=== PATIENT | male | born 1955 | race Caucasian/White ===

== ENCOUNTER → 2017-08-03 | Outpatient (CLI) | payer OTHER ==
--- NOTE | 2017-08-03 18:34 | US ---
EXAMINATION TYPE: US liver DATE OF EXAM: 08/03/2017 COMPARISON: NONE CLINICAL HISTORY: R74.8 abnormal levels of other serum enzymes; on medication for HTN, high cholester ol and DVT; HT 6'2, WT 250lbs EXAM MEASUREMENTS: Liver Length: 15.3 cm Gallbladder Wall: 0.2 cm CBD: 0.4 cm Right Kidney: 11.1 x 5.4 x 5.3 cm Pancreas: Tail obscured by overlying bowel gas Liver: hyperechoic to right renal cortex suggests fatty live Gallbladder: wnl Evidence for sonographic Dickerson's sign: No CBD: wnl Right Kidney: No hydronephrosis or masses seen IMPRESSION: Negative liver ultrasound exam. No dilated ducts. No focal liver defect.
== END ==
LOC: RADUSMAIN 17:47
PROVIDERS: ATTEND Family Medicine
DX: R74.8 Abnormal levels of other serum enzymes (principal)
CPT/HCPCS: 76705

== ENCOUNTER 2018-04-24 12:04 | Inpatient (IN) | payer OTHER ==
[2018-04-24] MEDS ORDERED: SODIUM CHLORIDE 0.9% 1,000 ML IV STA (12:40)
[2018-04-24] MEDS ORDERED: AMPICILLIN-SULBACTAM 3 GM in SODIUM CHLORIDE 0.9% 100 ML IVPB STA (12:45)
[2018-04-24] MEDS ORDERED: VANCOMYCIN IV PER PHARMACY 1 EACH MISC MISCELLANE PRN (12:46)
--- NOTE | 2018-04-24 12:49 | ED ---
Lower Extremity Injury HPI - General Chief Complaint: Extremity Injury, Lower Stated Complaint: POSS BLOODCLOT Time Seen by Provider: 04/24/18 12:21 Source: patient, RN notes reviewed Mode of arrival: wheelchair Limitations: no limitations - History of Present Illness Initial Comments: This is a 62-year-old male who presents to the emergency department with chief complaint of possible blood clot. Patient states that he has had a chronic wound on his right lower extremity for 7-8 years. He states that he was monitored by Dr. Mortensen and was recently cleared for treatment. Patient states that then, a couple weeks ago, the wound opened back up. He states that he followed up with his primary care provider, Dr. Peralta a couple of days ago. He was told that the wound did not look infected but Dr. Peralta recommended reestablishing care with Dr. Mortensen. Patient states when he woke up this morning his right calf was very tender, warm and red. He states he has been having difficulty ambulating because of the pain. Patient states he believes he may have a blood clot as he is prone to blood clots. He states he is currently taking Coumadin. He states that the wound looks as if it is healing since he has seen Dr. Peralta. He denies any fevers or chills, chest pain or shortness of breath, abdominal pain, nausea or vomiting. - Related Data Home Medications Medication Instructions Recorded Confirmed ALPRAZolam [Xanax] 0.5 mg PO TID PRN 01/22/14 12/27/17 Metoprolol Tartrate [Lopressor] 100 mg PO BID 01/22/14 12/27/17 HYDROcodone/APAP 10-325MG [[place] 1 tab PO Q4H PRN 03/01/17 12/27/17 10-325] Atorvastatin [Lipitor] 40 mg PO DAILY 09/08/17 12/27/17 Warfarin Sodium 5 mg PO MO 11/01/17 12/27/17 Warfarin [Coumadin] 2.5 mg PO DAILY 11/01/17 12/27/17 Allergies Allergy/AdvReac Type Severity Reaction Status Date / Time No Known Allergies Allergy Verified 04/24/18 12:18 Review of Systems ROS Statement: Those systems with pertinent positive or pertinent negative responses have been documented in the HPI. ROS Other: All systems not noted in ROS Statement are negative. Past Medical History Past Medical History: Atrial Fibrillation, Chest Pain / Angina, COPD, Deep Vein Thrombosis (DVT), GERD/Reflux, Hyperlipidemia, Hypertension, Myocardial Infarction (ME), Osteoarthritis (OA), Pneumonia, Pulmonary Embolus (PE), Vascular Disorder Additional Past Medical History / Comment(s): HAS A SKIN ULCER ON RIGHT ANKLE ( SINCE VENOUS ABLATION, HAS BEEN TO WOUND CENTER, IT STILL HAS NOT HEALED, APPT WITH [facility] ON SEP 16, 2017). SOB with activity, hepatitis C. Last Myocardial Infarction Date:: 04/2013 History of Any Multi-Drug Resistant Organisms: None Reported Past Surgical History: Heart Catheterization With Stent Additional Past Surgical History / Comment(s): throat and vocal cords scraped ( NEG). 08/03/14 [facility] Past Anesthesia/Blood Transfusion Reactions: No Reported Reaction Date of Last Stent Placement:: 05/16/2013 Past Psychological History: Anxiety Smoking Status: Former smoker Past Alcohol Use History: None Reported Past Drug Use History: None Reported - Past Family History Mother Family Medical History: Coronary Artery Disease (CAD) Sister(s) Family Medical History: Deep Vein Thrombosis (DVT) General Exam - General Exam Comments Initial Comments: General: Awake and alert, well-developed; in no apparent distress. HEENT: Head atraumatic, normocephalic. Pupils are equal, round and reactive to light. Extraocular movements intact. Oropharynx moist without erythema or exudate. Neck: Supple. Normal ROM. Cardiovascular: Regular rate and rhythm. No murmurs, rubs or gallops. Chest symmetrical. Respiratory: Lungs clear to auscultation bilaterally. No wheezes, rales or rhonchi. Normal respiratory effort with no use of accessory muscles. Musculoskeletal: Normal ROM bilateral upper and lower extremities. Right calf is tender on palpation. Skin: Approximately 10 cm x 3 cm open wound right medial distal lower extremity. Drainage is green in color. Just distal to this wound is a circular open wound measuring approximately 1 cm in diameter. This is also draining a green fluid. Erythema, warmth and tenderness from the wound extending almost to the knee. Neurological: Alert and oriented x3. CN II-XII grossly intact. Speech is fluent and answers are appropriate. No focal neuro deficits. Psychiatric: Normal mood and affect. No overt signs of depression or anxiety noted. Limitations: no limitations Course Vital Signs 04/24/18 04/24/18 04/24/18 12:17 13:52 14:00 Temperature 98.8 F 98.6 F Pulse Rate 97 94 Respiratory 18 18 16 Rate Blood Pressure 144/80 143/76 O2 Sat by Pulse 97 99 Oximetry Medical Decision Making - Medical Decision Making This is a 62-year-old male who presents to the emergency department with chief complaint of right calf pain. Patient reports that he has a chronic wound to his right lower extremity. He states that he is on Coumadin as he has had blood clots in the past. Patient states that he was managed by Dr. Mortensen for the chronic wound but was recently cleared from treatment. He states that his wound reopened up a couple of weeks ago. He did follow up with Dr. Peralta a couple of days ago who wanted patient to reestablish care with Dr. Mortensen. Patient reports to the emergency Department today with complaint of right calf pain, redness and warmth. Ultrasound venous Doppler of right lower extremity revealed evidence for a new superficial greater saphenous vein clot. Septic workup was performed. Patient does have a white count at 24.5 with a left shift at 22.7. INR is 2.7 which is in therapeutic range for Coumadin. Lactic acid is within normal limits. Patient was started on vancomycin and Unasyn on initial presentation to the emergency department as there was high suspicion for infection. Patient's vital signs are stable and he is in no acute distress. He will be admitted to Dr. Stack with a consult to Dr. Mortensen. Patient is in agreement for admission. He is in no acute distress. - Lab Data Result diagrams: 04/24/18 13:00 04/24/18 13:00 Lab Results 04/24/18 04/24/18 04/24/18 Range/Units 13:00 13:00 13:00 WBC 24.5 H (3.8-10.6) k/uL RBC 4.24 L (4.30-5.90) m/uL Hgb 12.5 L (13.0-17.5) gm/dL Hct 39.8 (39.0-53.0) % MCV 93.9 (80.0-100.0) fL MCH 29.5 (25.0-35.0) pg MCHC 31.4 (31.0-37.0) g/dL RDW 13.6 (11.5-15.5) % Plt Count 135 L (150-450) k/uL Neutrophils % 93 % Lymphocytes % 3 % Monocytes % 4 % Eosinophils % 0 % Basophils % 0 % Neutrophils # 22.7 H (1.3-7.7) k/uL Lymphocytes # 0.7 L (1.0-4.8) k/uL Monocytes # 1.0 (0-1.0) k/uL Eosinophils # 0.1 (0-0.7) k/uL Basophils # 0.0 (0-0.2) k/uL PT (9.0-12.0) sec INR (<1.2) APTT (22.0-30.0) sec Sodium 138 (137-145) mmol/L Potassium 3.9 (3.5-5.1) mmol/L Chloride 109 H (98-107) mmol/L Carbon Dioxide 21 L (22-30) mmol/L Anion Gap 8 mmol/L BUN 15 (9-20) mg/dL Creatinine 0.70 (0.66-1.25) mg/dL Est GFR (CKD-EPI)AfAm >90 (>60 ml/min/1.73 sqM) Est GFR (CKD-EPI)NonAf >90 (>60 ml/min/1.73 sqM) Glucose 127 H (74-99) mg/dL Plasma Lactic Acid Charlie 1.2 (0.7-2.0) mmol/L Calcium 8.8 (8.4-10.2) mg/dL Total Bilirubin 1.0 (0.2-1.3) mg/dL AST 46 (17-59) U/L ALT 70 (21-72) U/L Alkaline Phosphatase 95 (38-126) U/L Total Protein 7.7 (6.3-8.2) g/dL Albumin 3.6 (3.5-5.0) g/dL 04/24/18 Range/Units 13:00 WBC (3.8-10.6) k/uL RBC (4.30-5.90) m/uL Hgb (13.0-17.5) gm/dL Hct (39.0-53.0) % MCV (80.0-100.0) fL MCH (25.0-35.0) pg MCHC (31.0-37.0) g/dL RDW (11.5-15.5) % Plt Count (150-450) k/uL Neutrophils % % Lymphocytes % % Monocytes % % Eosinophils % % Basophils % % Neutrophils # (1.3-7.7) k/uL Lymphocytes # (1.0-4.8) k/uL Monocytes # (0-1.0) k/uL Eosinophils # (0-0.7) k/uL Basophils # (0-0.2) k/uL PT 24.2 H (9.0-12.0) sec INR 2.7 H (<1.2) APTT 40.1 H (22.0-30.0) sec Sodium (137-145) mmol/L Potassium (3.5-5.1) mmol/L Chloride (98-107) mmol/L Carbon Dioxide (22-30) mmol/L Anion Gap mmol/L BUN (9-20) mg/dL Creatinine (0.66-1.25) mg/dL Est GFR (CKD-EPI)AfAm (>60 ml/min/1.73 sqM) Est GFR (CKD-EPI)NonAf (>60 ml/min/1.73 sqM) Glucose (74-99) mg/dL Plasma Lactic Acid Charlie (0.7-2.0) mmol/L Calcium (8.4-10.2) mg/dL Total Bilirubin (0.2-1.3) mg/dL AST (17-59) U/L ALT (21-72) U/L Alkaline Phosphatase (38-126) U/L Total Protein (6.3-8.2) g/dL Albumin (3.5-5.0) g/dL - Radiology Data Radiology results: report reviewed Ultrasound venous Doppler right lower extremity impression: Positive for old thrombus in the popliteal vein and new thrombus in the superficial greater saphenous vein. Disposition Clinical Impression: Acute superficial venous thrombosis of right lower extremity, Wound infection Disposition: ADMITTED IP TO THIS [facility] Condition: Good Is patient prescribed a controlled substance at d/c from ED?: No Referrals: Pedro Peralta DO [Primary Care Provider] - 1-2 days Time of Disposition: 14:21
[2018-04-24] MEDS ORDERED: VANCOMYCIN 2,250 MG in SODIUM CHLORIDE 0.9% 500 ML IVPB STA (12:52)
[2018-04-24 13:36] LABS: ALT 70 U/L (21-72); AST 46 U/L (17-59); Albumin 3.6 g/dL (3.5-5.0); Alkaline Phosphatase 95 U/L (38-126); Anion Gap 8 mmol/L; Blood Urea Nitrogen 15 mg/dL (9-20); Calcium 8.8 mg/dL (8.4-10.2); Carbon Dioxide 21 mmol/L (22-30); Chloride 109 mmol/L (98-107); Glucose 127 mg/dL (74-99); Potassium 3.9 mmol/L (3.5-5.1); Sodium 138 mmol/L (137-145); Total Protein 7.7 g/dL (6.3-8.2)
[2018-04-24 13:43] LABS: Basophils % (A) 0 %; Eosinophils # (A) 0.1 k/uL (0-0.7); Eosinophils % (A) 0 %; HCT 39.8 % (39.0-53.0); HGB 12.5 gm/dL (13.0-17.5); Lymphocytes # (A) 0.7 k/uL (1.0-4.8); Lymphocytes % (A) 3 %; MCH 29.5 pg (25.0-35.0); MCHC 31.4 g/dL (31.0-37.0); MCV 93.9 fL (80.0-100.0); Mean Platelet Volume 6.9; Monocytes % (A) 4 %; Neutrophils # (A) 22.7 k/uL (1.3-7.7); Neutrophils % (A) 93 %; Platelet Count 135 k/uL (150-450); RBC 4.24 m/uL (4.30-5.90); RDW 13.6 % (11.5-15.5); WBC 24.5 k/uL (3.8-10.6)
[2018-04-24] MEDS ORDERED: MORPHINE SULFATE 4 MG/ML SYRINGE IVP STA (13:53)
--- NOTE | 2018-04-24 13:58 | US ---
EXAMINATION TYPE: US venous doppler duplex LE RT DATE OF EXAM: 04/24/2018 1:50 PM COMPARISON: NONE CLINICAL HISTORY: Pain, history of DVT right leg 6 years prior, non healing leg wound x 2 years. SIDE PERFORMED: Right TECHNIQUE: The lower extremity deep venous system is examined utilizing real time linear array sonog steve with graded compression, doppler sonography and color-flow sonography. VESSELS IMAGED: External Iliac Vein (EIV) Common Femoral Vein Deep Femoral Vein Greater Saphenous Vein * Femoral Vein Popliteal Vein Small Saphenous Vein * Proximal Calf Veins (* superficial vessels) Prominent lymph nodes in right groin. Extensive right leg swelling. Right Leg: At proximal popliteal vein is not completely compressible and shows echogenic focus within . This is non-occluding, there is flow around it. GSV shows thrombus, large non-compressible vein. No popliteal fossa lesion is seen. IMPRESSION: THIS EXAMINATION IS POSITIVE FOR OLD THROMBUS IN THE POPLITEAL VEIN AND NEW THROMBUS IN THE SUPERFICI AL GREATER SAPHENOUS VEIN.
[2018-04-24 14:00] LABS: INR 2.7 (<1.2); Partial Thromboplastin Time 40.1 sec (22.0-30.0); Prothrombin Time 24.2 sec (9.0-12.0)
[2018-04-24] MEDS ORDERED: ONDANSETRON 4 MG/2 ML VIAL IVP PRN (14:21)
[2018-04-24] MEDS ORDERED: HYDROcodone/APAP 5-325MG 1 EACH TAB PO PRN (14:21)
[2018-04-24] MEDS ORDERED: NALOXONE 0.4 MG/ML 1 ML VIAL IV PRN (14:21)
[2018-04-24] MEDS ORDERED: MORPHINE SULFATE 4 MG/ML SYRINGE IV PRN (14:21)
[2018-04-24] MEDS: SODIUM CHLORIDE 0.9% 1,000 ML IV SCH ×2 (15:35→23:06)
[2018-04-24] MEDS ORDERED: MAGNESIUM HYDROXIDE 2,400 MG/10 ML CUP PO PRN (16:58)
[2018-04-24] MEDS ORDERED: LACTULOSE 20 GM/30 ML CUP PO PRN (16:58)
[2018-04-24] MEDS ORDERED: CALCIUM CARBONATE 500 MG CHEWABLE PO PRN (16:58)
[2018-04-24] MEDS ORDERED: MELATONIN 3 MG TABLET PO PRN (16:58)
[2018-04-24] MEDS ORDERED: LORazepam 0.5 MG TAB PO PRN (16:58)
[2018-04-24] MEDS: HYDROcodone/APAP 10-325MG 1 EACH TAB PO PRN ×2 (17:18→23:05)
[2018-04-24] MEDS: WARFARIN 2.5 MG TAB PO SCH (17:37)
[2018-04-24] MEDS: AMPICILLIN-SULBACTAM 3 GM in SODIUM CHLORIDE 0.9% 100 ML IVPB SCH ×2 (17:37→23:05)
[2018-04-24] MEDS: ATORVASTATIN 40 MG TAB PO SCH (20:06)
[2018-04-24] MEDS: METOPROLOL TARTRATE 50 MG TAB PO SCH (20:06)
[2018-04-24] MEDS ORDERED: MORPHINE ORAL SOLN 10 MG/5 ML CUP PO PRN (21:29)
[2018-04-24] MEDS: VANCOMYCIN 2,000 MG in SODIUM CHLORIDE 0.9% 500 ML IVPB SCH (23:05)
--- NOTE | 2018-04-24 23:40 | HP ---
HISTORY AND PHYSICAL DATE OF ADMISSION: 04/24/2018. PRESENTING COMPLAINT: Infected right foot. HISTORY OF PRESENTING COMPLAINT: This is a very pleasant 62-year-old patient of Dr. Peralta whose chronic stable medical conditions include atrial fibrillation, GERD, hyperlipidemia, hypertension, coronary artery disease, osteoarthritis. The patient has a wound on the right foot for 9 years, has followed with Dr. Mortensen off and on in the wound center. The patient also had some valvular surgery done to the lower extremity down at [facility] about 2 years ago. About 2 weeks ago patient's wound is again getting worse, 2 days ago right leg became more painful, swollen, red. No fever or chills. Not infected appearing. The patient decided to present to the ER. He was started on IV Unasyn. Admitted for the same. Dressing was put on the same. REVIEW OF SYSTEMS: CONSTITUTIONAL: Tired. HEENT: None. RESPIRATORY: None. CARDIOVASCULAR: None. GASTROINTESTINAL: Heartburn. GENITOURINARY: None. MUSCULOSKELETAL: Aches and pains in the joints. DERMATOLOGIC: As above. LYMPHATICS: None. PSYCHIATRY: None. NEUROLOGIC: None. PAST MEDICAL HISTORY: Atrial fibrillation, DVT, GERD, hyperlipidemia, hypertension, myocardial infarction, osteoarthritis, PE, peripheral artery disease, skin ulcer of the right ankles, hepatitis C. PAST SURGICAL HISTORY: Cardiac cath with stent, throat and vocal cords were scraped, venous circulation and intervention at [facility]. PSYCH HISTORY: Anxiety. SOCIAL HISTORY: The patient smoked a pack a day for 25 years, stopped 9 years ago. . 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 FAMILY HISTORY: Coronary artery disease. HOME MEDICATIONS: 1. Coumadin 2.5 on Wednesday, Wednesday, Wednesday, , Wednesday, Wednesday, 5 mg on Wednesday. 2. Lopressor 100 mg b.i.d. 3. [place] 10 mg 1 tab every 4 hours p.r.n. 4. Lipitor 40 mg at bedtime. 5. Aspirin 81 mg p.o. daily. ALLERGIES: APIXABAN. EXAMINATION: VITAL SIGNS: Temperature 100.4, pulse 110, respirations 16, blood pressure 159/59, pulse ox 98% on room air. GENERAL APPEARANCE: Average built, BMI 35.2, sitting up, anxious-appearing. EYES: Pupils equal. Conjunctivae normal. HEENT: External nose and ears normal. Oral cavity normal. NECK: JVD not raised. Mass not palpable. Respiratory effort normal. LUNGS: Slightly decreased breath sounds. CARDIOVASCULAR: 1st and 2nd sounds normal. No edema. ABDOMEN: Soft, nontender. Liver and spleen not palpable. LYMPHATIC: No lymph nodes palpable in neck or axillae. PSYCHIATRY: Alert and oriented x3. Mood and affect normal. EXTREMITIES: Right foot in a dressing. There is redness and tenderness extending to the mid calf level. INVESTIGATIONS: White count 24.5, hemoglobin 12.5, increased neutrophils. INR 2.7. Potassium 3.9. BUN and creatinine normal. Venous Doppler of the right lower extremity shows full thrombus in the peripheral vein and new thrombus in the superficial greater saphenous vein. ASSESSMENT: 1. Acute on chronic right foot wound from underlying peripheral artery disease, secondary infected causing sepsis present on admission. 2. History of atrial fibrillation. 3. Chronic deep venous thrombosis in the right lower extremity. 4. Questionable deep venous thrombosis in the superficial femoral vein. 5. Gastroesophageal reflux disease. 6. Hyperlipidemia. 7. Essential hypertension. 8. Primary osteoarthritis. 9. Peripheral artery disease with prior intervention. 10.Coronary artery disease, prior history of stent. PLAN: Home medications are resumed. The patient is also put on vancomycin and Unasyn. Consultation to Infectious Disease and Vascular has been done. Care was discussed with the patient. Questions were answered. INR will be closely followed. MMODL / IJN: [id number] /
[2018-04-25] MEDS: HYDROcodone/APAP 10-325MG 1 EACH TAB PO PRN ×5 (04:21→22:45)
[2018-04-25] MEDS: AMPICILLIN-SULBACTAM 3 GM in SODIUM CHLORIDE 0.9% 100 ML IVPB SCH ×3 (06:20→18:32)
[2018-04-25] MEDS: ASPIRIN 81 MG PO SCH (09:09)
[2018-04-25] MEDS: METOPROLOL TARTRATE 50 MG TAB PO SCH ×2 (09:09→21:47)
[2018-04-25] MEDS: VANCOMYCIN 2,000 MG in SODIUM CHLORIDE 0.9% 500 ML IVPB SCH ×2 (09:09→16:52)
[2018-04-25] MEDS ORDERED: DIPH,PERTUS(ACELL)TETVAC-LF 0.5 ML VIAL IM ONE (10:21)
--- NOTE | 2018-04-25 14:29 | P.CONS ---
History of Present Illness - Reason for Consult Consult date: 04/25/18 Chronic wound infection - History of Present Illness This is a 62-year-old male well-known to ID service as he has been seen in the past most recently under the care of Dr. Mortensen in the wound healing Center and he was discharged from care on December 2017. Patient also has history of endovenous laser ablation done in [place] by Dr. Lopes in December. He has chronic wounds to the right lower extremity for 70 years. He states couple weeks ago the wound opened up and when he got up on Wednesday he noticed that it was very tender to his calf, warm and red. He did see Dr. Peralta last Wednesday and everything was fine at that time. He came into [facility] emergency center was found to have a fever of 100.9 , leukocytosis of 24.9. INR is 2.7. He is on chronic Coumadin for multiple DVTs. Ultrasound of the right leg showed old thrombus in the popliteal vein and superficial greater saphenous vein. Patient was started on Unasyn and vancomycin and admitted to the Medr floor. Patient does not recall his last tetanus up-to-date. Review of Systems All systems: negative Constitutional: Denies chills, Denies fever, Denies poor appetite, Denies weight loss Eyes: denies blurred vision, denies pain Ears, nose, mouth and throat: Denies dysphagia, Denies headache, Denies sore throat Cardiovascular: Reports leg edema, Denies chest pain, Denies decreased exercise tolerance, Denies dyspnea on exertion, Denies lightheadedness, Denies shortness of breath, Denies syncope Respiratory: Denies cough, Denies cough with sputum, Denies dyspnea, Denies excessive sputum, Denies hemoptysis, Denies home oxygen, Denies wheezing Gastrointestinal: Denies abdominal pain, Denies diarrhea, Denies nausea, Denies vomiting Genitourinary: Denies dysuria Musculoskeletal: Denies myalgias Integumentary: Reports foot/leg ulcers, Reports wounds, Denies pruritus, Denies rash Neurological: Denies numbness, Denies weakness Psychiatric: Denies anxiety, Denies depression Endocrine: Denies fatigue, Denies weight change Past Medical History Past Medical History: Atrial Fibrillation, Chest Pain / Angina, Deep Vein Thrombosis (DVT), GERD/Reflux, Hyperlipidemia, Hypertension, Myocardial Infarction (HI), Osteoarthritis (OA), Pneumonia, Pulmonary Embolus (PE), Vascular Disorder Additional Past Medical History / Comment(s): HAS A SKIN ULCER ON RIGHT ANKLE ( SINCE VENOUS ABLATION, HAS BEEN TO WOUND CENTER, IT STILL HAS NOT HEALED, APPT WITH [facility] ON SEP [facility], 2017). SOB with activity, hepatitis C. Last Myocardial Infarction Date:: 04/2013 History of Any Multi-Drug Resistant Organisms: None Reported Past Surgical History: Heart Catheterization With Stent Additional Past Surgical History / Comment(s): throat and vocal cords scraped ( NEG). 08/03/14 Venous ablation done at [facility]. Past Anesthesia/Blood Transfusion Reactions: No Reported Reaction Date of Last Stent Placement:: 05/16/2013 Past Psychological History: Anxiety Smoking Status: Former smoker Past Alcohol Use History: None Reported Additional Past Alcohol Use History / Comment(s): QUIT: 9 YRS(2006). SMOKED: ABOUT 25 YRS. PPD: 1. Patient denies any marijuana or street drug use. He lives at home with his , dogs and cat and Bird. 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 Past Drug Use History: None Reported - Past Family History Mother Family Medical History: Coronary Artery Disease (CAD) Sister(s) Family Medical History: Deep Vein Thrombosis (DVT) Medications and Allergies Home Medications Medication Instructions Recorded Confirmed Type Metoprolol Tartrate [Lopressor] 100 mg PO BID 01/22/14 04/24/18 History HYDROcodone/APAP 10-325MG [[place] 1 tab PO Q4H PRN 03/01/17 04/24/18 History 10-325] Atorvastatin [Lipitor] 40 mg PO HS 09/08/17 04/24/18 History Warfarin Sodium 5 mg PO TU 11/01/17 04/24/18 History Aspirin [Children's Aspirin] 81 mg PO DAILY 04/24/18 04/24/18 History Warfarin [Coumadin] 2.5 mg PO SUMOWETHFRSA 04/24/18 04/24/18 History Vancomycin 2,000 mg IVPB Q24HR #80 bag 04/28/18 Rx Allergies Allergy/AdvReac Type Severity Reaction Status Date / Time apixaban [From Eliquis] AdvReac Confusion Verified 04/24/18 18:43 Physical Exam Vitals: Vital Signs Temp Pulse Pulse Resp BP BP BP 04/25/18 07:00 98.2 F 79 18 101/47 04/24/18 23:00 100.9 F H 97 18 137/71 04/24/18 19:43 98.9 F 100 20 128/66 04/24/18 16:57 18 04/24/18 15:28 98.2 F 99 18 159/59 04/24/18 15:00 100.4 F H 110 H 16 188/97 04/24/18 14:00 16 04/24/18 13:52 98.6 F 94 18 143/76 04/24/18 12:17 98.8 F 97 18 144/80 Pulse Ox 04/25/18 07:00 99 04/24/18 23:00 98 04/24/18 19:43 98 04/24/18 16:57 04/24/18 15:28 98 04/24/18 15:00 04/24/18 14:00 04/24/18 13:52 99 04/24/18 12:17 97 Intake and Output 04/24/18 04/25/18 04/25/18 22:59 06:59 14:59 Intake Total 1050 525 Balance 1050 525 Intake: Amount of Fluid Infused ( 600 ml) Oral 450 525 Other: # Voids 1 1 Gen: This is a 62-year-old male. He is in bed and appears to be comfortable and in no acute distress. HEENT: Head is atraumatic, normocephalic. Pupils equal, round. Sclerae is anicteric. Dentition is in poor oral. Mucous membranes of the mouth are moist. NECK: Supple. No JVD. No lymphadenopathy. No thyromegaly. LUNGS: Clear to auscultation. No wheezes or rhonchi. No intercostal retractions. HEART: Regular rate and rhythm. No murmur. ABDOMEN: Soft. Bowel sounds are present. No masses. No tenderness. EXTREMITIES: Large ulceration to the right lower leg with tendon exposure and small ulcer to the right medial malleolus small superficial last ulcerations to the right lateral malleolus. Dorsalis pedis is palpable bilaterally. NEUROLOGICAL: Patient is awake, alert and oriented x3. Cranial nerves 2 through 12 are grossly intact. Results Results: Laboratory Tests Range/Units 04/24/18 04/24/18 04/24/18 13:00 13:00 13:00 WBC (3.8-10.6) k/uL 24.5 H RBC (4.30-5.90) m/uL 4.24 L Hgb (13.0-17.5) gm/dL 12.5 L Hct (39.0-53.0) % 39.8 MCV (80.0-100.0) fL 93.9 MCH (25.0-35.0) pg 29.5 MCHC (31.0-37.0) g/dL 31.4 RDW (11.5-15.5) % 13.6 Plt Count (150-450) k/uL 135 L Neutrophils % % 93 Lymphocytes % % 3 Monocytes % % 4 Eosinophils % % 0 Basophils % % 0 Neutrophils # (1.3-7.7) k/uL 22.7 H Lymphocytes # (1.0-4.8) k/uL 0.7 L Monocytes # (0-1.0) k/uL 1.0 Eosinophils # (0-0.7) k/uL 0.1 Basophils # (0-0.2) k/uL 0.0 PT (9.0-12.0) sec INR (<1.2) APTT (22.0-30.0) sec Sodium (137-145) mmol/L 138 Potassium (3.5-5.1) mmol/L 3.9 Chloride (98-107) mmol/L 109 H Carbon Dioxide (22-30) mmol/L 21 L Anion Gap mmol/L 8 BUN (9-20) mg/dL 15 Creatinine (0.66-1.25) mg/dL 0.70 Est GFR (CKD-EPI)AfAm (>60 ml/min/1.73 sqM) >90 Est GFR (CKD-EPI)NonAf (>60 ml/min/1.73 sqM) >90 Glucose (74-99) mg/dL 127 H Plasma Lactic Acid Charlie (0.7-2.0) mmol/L 1.2 Calcium (8.4-10.2) mg/dL 8.8 Total Bilirubin (0.2-1.3) mg/dL 1.0 AST (17-59) U/L 46 ALT (21-72) U/L 70 Alkaline Phosphatase (38-126) U/L 95 Total Protein (6.3-8.2) g/dL 7.7 Albumin (3.5-5.0) g/dL 3.6 Range/Units 04/24/18 13:00 WBC (3.8-10.6) k/uL RBC (4.30-5.90) m/uL Hgb (13.0-17.5) gm/dL Hct (39.0-53.0) % MCV (80.0-100.0) fL MCH (25.0-35.0) pg MCHC (31.0-37.0) g/dL RDW (11.5-15.5) % Plt Count (150-450) k/uL Neutrophils % % Lymphocytes % % Monocytes % % Eosinophils % % Basophils % % Neutrophils # (1.3-7.7) k/uL Lymphocytes # (1.0-4.8) k/uL Monocytes # (0-1.0) k/uL Eosinophils # (0-0.7) k/uL Basophils # (0-0.2) k/uL PT (9.0-12.0) sec 24.2 H INR (<1.2) 2.7 H APTT (22.0-30.0) sec 40.1 H Sodium (137-145) mmol/L Potassium (3.5-5.1) mmol/L Chloride (98-107) mmol/L Carbon Dioxide (22-30) mmol/L Anion Gap mmol/L BUN (9-20) mg/dL Creatinine (0.66-1.25) mg/dL Est GFR (CKD-EPI)AfAm (>60 ml/min/1.73 sqM) Est GFR (CKD-EPI)NonAf (>60 ml/min/1.73 sqM) Glucose (74-99) mg/dL Plasma Lactic Acid Charlie (0.7-2.0) mmol/L Calcium (8.4-10.2) mg/dL Total Bilirubin (0.2-1.3) mg/dL AST (17-59) U/L ALT (21-72) U/L Alkaline Phosphatase (38-126) U/L Total Protein (6.3-8.2) g/dL Albumin (3.5-5.0) g/dL CBC & Chem 7: 04/28/18 07:39 04/29/18 07:20 Labs: Abnormal Lab Results - Last 24 Hours (Table) 04/24/18 04/24/18 04/24/18 Range/Units 13:00 13:00 13:00 WBC 24.5 H (3.8-10.6) k/uL RBC 4.24 L (4.30-5.90) m/uL Hgb 12.5 L (13.0-17.5) gm/dL Plt Count 135 L (150-450) k/uL Neutrophils # 22.7 H (1.3-7.7) k/uL Lymphocytes # 0.7 L (1.0-4.8) k/uL PT 24.2 H (9.0-12.0) sec INR 2.7 H (<1.2) APTT 40.1 H (22.0-30.0) sec Chloride 109 H (98-107) mmol/L Carbon Dioxide 21 L (22-30) mmol/L Glucose 127 H (74-99) mg/dL Assessment and Plan Plan: This is a 62-year-old male known to ID service as he has had treatment for right lower extremity wound and the wound healing Center under the care of Dr. Mortensen. Patient now presents with significant edema, redness and ulceration to the right lower extremity. He is currently on Unasyn and vancomycin which will be continued. Patient did present with signs of sepsis secondary to wounds. Blood culture is in progress. We have added in all wound culture, multivitamin, tetanus and a bone scan has been ordered. Continue supportive care. Further recommendations as patient progresses. The above dictated assessment and findings were discussed with Dr. Armstrong. The impression and plan of care have been directed as dictated. Zara Herrera nurse practitioner acting as scribe for Dr. Armstrong.
[2018-04-25] MEDS: SODIUM CHLORIDE 0.9% 1,000 ML IV SCH (14:47)
[2018-04-25 15:37] VITALS: BMI 35.4
--- NOTE | 2018-04-25 15:58 | NM ---
EXAMINATION TYPE: NM bone 3 phase DATE OF EXAM: 04/25/2018 COMPARISON: NONE HISTORY: Right foot and lower tibia fibula infection Triple phase bone scintigraphy was performed following the injection of 24.6 mCi Tc 99m MDP. Immedia te images and 3.25 hours post injection images acquired. FINDINGS: Increased blood flow and blood pool activity noted to the right lower extremity as compared to left i n the medial extent at the level of the ankle is some mild uptake noted in the midfoot noted on blood pool and delayed imaging. IMPRESSION: Findings felt more likely represent cellulitis and osteomyelitis. Follow-up as indicated. Probable un derlying degenerative change within the foot.
[2018-04-25] MEDS: WARFARIN 2.5 MG TAB PO SCH (16:53)
--- NOTE | 2018-04-25 17:35 | PN ---
PROGRESS NOTE DATE OF SERVICE: 04/25/2018. PRESENTING COMPLAINT: Infected right foot. INTERVAL HISTORY: This is a patient with chronic wound on the right leg who presented with acute exacerbation. Patient is on antibiotics. No fever. No chills. Did tolerate some diet. Sitting up in bed. REVIEW OF SYSTEMS: Done for constitutional, cardiovascular, GI, pulmonary; relevant findings as above. CURRENT MEDICATIONS: Reviewed. They include IV vancomycin and IV Unasyn. PHYSICAL EXAMINATION: Temperature 98.2, pulse 79, respiration 18, blood pressure 101/47, pulse ox 99% on room air. GENERAL APPEARANCE: Sitting up. Tired-appearing. EYES: Pupils equal. Conjunctivae normal. HEENT: External appearance of nose and ears normal. Oral cavity normal. NECK: JVD not raised. Mass not palpable. RESPIRATORY: Effort normal. LUNGS: Slightly decreased breath sounds. CARDIOVASCULAR: First and second sounds normal. No edema. ABDOMEN: Soft, non-tender. Liver and spleen not palpable. PSYCHIATRY: Alert and oriented x3. Mood and affect normal. Right foot in a dressing with redness and tenderness about the same. INVESTIGATIONS: No blood work from today. ASSESSMENT: 1. Acute on chronic right foot wound from underlying peripheral arterial disease with secondary infection causing sepsis, present on admission. 2. History of atrial fibrillation. 3. Chronic deep venous thrombosis in the right lower extremity. 4. Questionable deep venous thrombosis in superficial femoral veins. 5. Gastroesophageal reflux disease. 6. Hyperlipidemia. 7. Essential hypertension. 8. Primary osteoarthritis. 9. Peripheral arterial disease with prior . 10.Coronary artery disease with prior history of stent. PLAN: Continue current medication and treatment plan. Care was discussed with the patient. Patient did have a bone scan done earlier today. There was a question about osteomyelitis. Antibiotics to continue. Dr. Armstrong is on the case. MMODL / IJN: [id number] /
--- NOTE | 2018-04-25 19:46 | P.CON ---
Consult Note - . Consult date: 04/25/18 Assessment/Plan:: This is a 62-year-old male well-known to ID service as he has been seen in the past most recently under the care of Dr. Mortensen in the wound healing Center and he was discharged from care on December 2017. Patient also has history of endovenous laser ablation done in [place] by Dr. Lopes in December. He has chronic wounds to the right lower extremity for 70 years. He states couple weeks ago the wound opened up and when he got up on Wednesday he noticed that it was very tender to his calf, warm and red. He did see Dr. Peralta last Wednesday and everything was fine at that time. He came into [facility] emergency center was found to have a fever of 100.9 , leukocytosis of 24.9. INR is 2.7. He is on chronic Coumadin for multiple DVTs. Ultrasound of the right leg showed old thrombus in the popliteal vein and superficial greater saphenous vein. Patient was started on Unasyn and vancomycin and admitted to the [facility] floor. Patient does not recall his last tetanus up-to-date. Please see the consult note as dictated by nurse practitioner Marisa Zara Herrera.. If the symptoms pleasant gentleman is quite comfortable. He does answer to phone calls while I am present from his work. He relates they're pressuring him to come back as soon as possible due to the upcoming audit. The patient has had these to begin worsening of the chronic ulceration to the left lower extremity and with the development of significant erythema he presented to Hospital where he was found evidence of sepsis with leukocytosis from the cellulitis to the limb. Imaging has revealed an old clot there are no new acute clots at this time. Does have some significant edema to the limb. Vascular evaluation is being requested to determine his current vascular status and need for any further intervention. As noted he has had vascular interventions done at the [facility] last year. While cultures are pending he is on vancomycin and Unasyn based on prior culture results. Continue local care at this point in time with elevation and will utilize absorptive silver for now. Update his tetanus vaccine. Make sure he has a multivitamin. Leukocytosis appears to be directly related to the significant cellulitis and was monitored throughout his stay. He is chronically anticoagulated and INR appears to be therapeutic at 2.7. Patient understands importance of elevation and wound care. Requesting bone scan to evaluate the possibility of underlying deep infection, cultures are in process. Given the longevity there is concern there could be underlying osteomyelitis and may require outpatient intravenous antibiotic therapy. This can be arranged before his discharge. It may be slough some difficulty given his work schedule, but limb salvage is our primary goal. I agree with evaluation, assessment and plan as dictated by nurse practitioner Mrs. Zara Herrera.
[2018-04-25] MEDS: ATORVASTATIN 40 MG TAB PO SCH (21:47)
[2018-04-26] MEDS: AMPICILLIN-SULBACTAM 3 GM in SODIUM CHLORIDE 0.9% 100 ML IVPB SCH ×4 (00:39→17:59)
[2018-04-26] MEDS: VANCOMYCIN 2,000 MG in SODIUM CHLORIDE 0.9% 500 ML IVPB SCH ×2 (00:39→07:44)
[2018-04-26] MEDS: HYDROcodone/APAP 10-325MG 1 EACH TAB PO PRN ×5 (03:09→22:10)
[2018-04-26] MEDS: SODIUM CHLORIDE 0.9% 1,000 ML IV SCH ×3 (03:17→17:59)
[2018-04-26] MEDS ORDERED: VANCOMYCIN TROUGH DUE 1 EACH MISC MISCELLANE ONE (07:00)
[2018-04-26 07:46] LABS: Basophils % (A) 0 %; Eosinophils # (A) 0.3 k/uL (0-0.7); Eosinophils % (A) 2 %; HCT 34.6 % (39.0-53.0); HGB 10.8 gm/dL (13.0-17.5); Lymphocytes % (A) 8 %; MCH 30.1 pg (25.0-35.0); MCHC 31.3 g/dL (31.0-37.0); Mean Platelet Volume 7.2; Monocytes # (A) 0.5 k/uL (0-1.0); Monocytes % (A) 4 %; Neutrophils # (A) 9.6 k/uL (1.3-7.7); Neutrophils % (A) 83 %; Platelet Count 124 k/uL (150-450); RDW 13.3 % (11.5-15.5); WBC 11.5 k/uL (3.8-10.6)
[2018-04-26 08:19] LABS: Anion Gap 9 mmol/L; Blood Urea Nitrogen 12 mg/dL (9-20); Calcium 8.1 mg/dL (8.4-10.2); Carbon Dioxide 22 mmol/L (22-30); Chloride 109 mmol/L (98-107); Glucose 106 mg/dL (74-99); Sodium 140 mmol/L (137-145)
[2018-04-26] MEDS: METOPROLOL TARTRATE 50 MG TAB PO SCH ×2 (09:04→22:11)
[2018-04-26] MEDS: ASPIRIN 81 MG PO SCH (09:04)
[2018-04-26 11:01] LABS: INR 1.9 (<1.2)
[2018-04-26] MEDS ORDERED: WARFARIN 5 MG TAB PO SCH (18:00)
[2018-04-26] MEDS: ATORVASTATIN 40 MG TAB PO SCH (22:11)
--- NOTE | 2018-04-26 23:33 | P.PN ---
Subjective Progress Note Date: 04/26/18 This is a 62-year-old male well-known to ID service as he has been seen in the past most recently under the care of Dr. Mortensen in the wound healing Center and he was discharged from care on December 2017. Patient also has history of endovenous laser ablation done in [place] by Dr. Lopes in December. He has chronic wounds to the right lower extremity for 70 years. He states couple weeks ago the wound opened up and when he got up on Wednesday he noticed that it was very tender to his calf, warm and red. He did see Dr. Peralta last Wednesday and everything was fine at that time. He came into [facility] emergency center was found to have a fever of 100.9 , leukocytosis of 24.9. INR is 2.7. He is on chronic Coumadin for multiple DVTs. Ultrasound of the right leg showed old thrombus in the popliteal vein and superficial greater saphenous vein. Patient was started on Unasyn and vancomycin and [facility]. Patient does not recall his last tetanus up-to-date. 04/26/2018 reveals some improvement to the leg with some improved discomfort. Still very swollen and erythematous. Objective - Vital Signs Vital signs: Vital Signs Temp 99.5 F 04/26/18 15:00 Pulse 101 H 04/26/18 15:00 Resp 18 04/26/18 15:00 BP 124/85 04/26/18 15:00 Pulse Ox 96 04/26/18 15:00 Intake & Output 04/26/18 04/26/18 04/27/18 06:59 18:59 06:59 Intake Total 500 600 Output Total 2 Balance 498 600 Intake: Intake, IV Titration 600 Amount Ampicillin-Sulbactam 3 gm 100 In Sodium Chloride 0.9% 100 ml @ 100 mls/hr IVPB Q6HR HARDEEP Rx#:[id number] Sodium Chloride 0.9% 1, 500 000 ml @ 100 mls/hr IV . Q10H HARDEEP Rx#:[id number] Oral 500 Output: Urine 2 Other: Voiding Method Toilet # Voids 1 3 - Exam Gen: This is a 62-year-old male. He is in bed and appears to be comfortable and in no acute distress. HEENT: Head is atraumatic, normocephalic. Pupils equal, round. Sclerae is anicteric. Dentition is in poor oral. Mucous membranes of the mouth are moist. NECK: Supple. No JVD. No lymphadenopathy. No thyromegaly. LUNGS: Clear to auscultation. No wheezes or rhonchi. No intercostal retractions. HEART: Regular rate and rhythm. No murmur. ABDOMEN: Soft. Bowel sounds are present. No masses. No tenderness. EXTREMITIES: Large ulceration to the right lower leg with tendon exposure and small ulcer to the right medial malleolus small superficial last ulcerations to the right lateral malleolus. Dorsalis pedis is palpable bilaterally. NEUROLOGICAL: Patient is awake, alert and oriented x3. Cranial nerves 2 through 12 are grossly intact. - Labs CBC & Chem 7: 04/26/18 07:08 04/26/18 07:08 Labs: Abnormal Lab Results - Last 24 Hours (Table) 04/26/18 04/26/18 04/26/18 Range/Units 07:08 07:08 07:08 WBC 11.5 H (3.8-10.6) k/uL RBC 3.60 L (4.30-5.90) m/uL Hgb 10.8 L (13.0-17.5) gm/dL Hct 34.6 L (39.0-53.0) % Plt Count 124 L (150-450) k/uL Neutrophils # 9.6 H (1.3-7.7) k/uL PT (9.0-12.0) sec INR (<1.2) Chloride 109 H (98-107) mmol/L Glucose 106 H (74-99) mg/dL Calcium 8.1 L (8.4-10.2) mg/dL Vancomycin Trough 32.3 H* ug/mL 04/26/18 Range/Units 10:38 WBC (3.8-10.6) k/uL RBC (4.30-5.90) m/uL Hgb (13.0-17.5) gm/dL Hct (39.0-53.0) % Plt Count (150-450) k/uL Neutrophils # (1.3-7.7) k/uL PT 17.0 H (9.0-12.0) sec INR 1.9 H (<1.2) Chloride (98-107) mmol/L Glucose (74-99) mg/dL Calcium (8.4-10.2) mg/dL Vancomycin Trough ug/mL Microbiology - Last 24 Hours (Table) 04/25/18 12:58 Gram Stain - Preliminary Leg - Right Wound Culture - Preliminary Gram Neg Bacilli Gram Neg Bacilli#2 Presumptive Staph aureus 04/24/18 13:00 Blood Culture - Preliminary Blood No Growth after 48 hours Microbiology 04/25/18 12:58 Leg - Right Gram Stain - Preliminary 04/25/18 12:58 Leg - Right Wound Culture - Preliminary Gram Neg Bacilli Gram Neg Bacilli#2 Presumptive Staph aureus 04/24/18 13:00 Blood Blood Culture - Preliminary No Growth after 48 hours bone scan confirms osteomyelitis Assessment and Plan (1) Wound infection Narrative/Plan: pleasant gentleman is quite comfortable. He does answer to phone calls while I am present from his work. He relates they're pressuring him to come back as soon as possible due to the upcoming audit. The patient has had these to begin worsening of the chronic ulceration to the left lower extremity and with the development of significant erythema he presented to Hospital where he was found evidence of sepsis with leukocytosis from the cellulitis to the limb. Imaging has revealed an old clot there are no new acute clots at this time. Does have some significant edema to the limb. Vascular evaluation is being requested to determine his current vascular status and need for any further intervention. As noted he has had vascular interventions done at the [facility] last year. While cultures are pending he is on vancomycin and Unasyn based on prior culture results. Continue local care at this point in time with elevation and will utilize absorptive silver for now. Update his tetanus vaccine. Make sure he has a multivitamin. Leukocytosis appears to be directly related to the significant cellulitis and was monitored throughout his stay. He is chronically anticoagulated and INR appears to be therapeutic at 2.7. Patient understands importance of elevation and wound care. Requesting bone scan to evaluate the possibility of underlying deep infection, cultures are in process. Given the longevity there is concern there could be underlying osteomyelitis and may require outpatient intravenous antibiotic therapy. This can be arranged before his discharge. bone scan has confirmed the presence of osteomyelitis Cultures from process. We'll need to have significant improvement of swelling before ready for dischage Current Visit: Yes Status: Acute Code(s): T14.8XXA - OTHER INJURY OF UNSPECIFIED BODY REGION, INITIAL ENCOUNTER; L08.9 - LOCAL INFECTION OF THE SKIN AND SUBCUTANEOUS TISSUE, UNSP SNOMED Code(s): 51100422
[2018-04-26] MEDS: ACETAMINOPHEN TAB 325 MG TAB PO PRN (23:51)
[2018-04-27] MEDS: AMPICILLIN-SULBACTAM 3 GM in SODIUM CHLORIDE 0.9% 100 ML IVPB SCH ×4 (00:05→17:56)
[2018-04-27] MEDS: HYDROcodone/APAP 10-325MG 1 EACH TAB PO PRN ×6 (02:01→21:51)
[2018-04-27] MEDS: SODIUM CHLORIDE 0.9% 1,000 ML IV SCH ×2 (05:00→13:14)
--- NOTE | 2018-04-27 07:04 | PN ---
PROGRESS NOTE DATE OF SERVICE: 04/26/18. PRESENT COMPLAINT: Infected right foot. INTERVAL HISTORY: Patient presented with recurrent wounds on the right foot now again with cellulitis on antibiotics. Some pain is present tolerating a diet. No fever and chills. Overall feeling better. REVIEW OF SYSTEMS: Done for constitutional, cardiovascular, GI, pulmonary; relevant findings as above. CURRENT MEDICATIONS: Reviewed that include IV vancomycin and Unasyn. PHYSICAL EXAMINATION: Temperature 98.2, pulse 85, respiratory 20, blood pressure 139/79, pulse 97% on room air. GENERAL APPEARANCE: Sitting up, comfortable. EYES: Pupils equal. Conjunctivae normal. HEENT: External appearance of nose and ears normal. Oral cavity normal. NECK: JVD not raised. Mass not palpable. RESPIRATORY: Effort normal. Lungs, decreased breath sounds. CARDIOVASCULAR: First and second sounds, no edema. ABDOMEN: Soft, nontender. Liver and spleen not palpable. PSYCHIATRY: Alert and oriented x3. Mood and affect normal. Right foot wound is present. Pictures are in the chart. INVESTIGATIONS: Micro is growing gram-negative bacilli, 2 different types, and some Staph aureus. Blood cultures are negative. ASSESSMENT: 1. Acute on chronic right foot wound from underlying peripheral artery disease with secondary infection causing sepsis present on admission growing multiple organisms. 2. History of atrial fibrillation. 3. Chronic deep venous thrombosis in the right lower extremity. 4. Gastroesophageal reflux disease. 5. Hyperlipidemia. 6. Essential hypertension. 7. Primary osteoarthritis. 8. Prior peripheral artery disease with prior intervention. 9. Coronary artery disease with prior history of stent. PLAN: At this point, continue medication and treatment plan. It appears the right foot wound is all cellulitis. Awaiting consultation from Dr. Mortensen. Otherwise, antibiotics and local wound care to continue per Dr. Armstrong. MMODL / IJN: [id number] /
[2018-04-27] MEDS: ASPIRIN 81 MG PO SCH (08:02)
[2018-04-27] MEDS: METOPROLOL TARTRATE 50 MG TAB PO SCH ×2 (08:02→20:50)
[2018-04-27] MEDS: VANCOMYCIN 2,000 MG in SODIUM CHLORIDE 0.9% 500 ML IVPB SCH ×2 (08:02→20:55)
[2018-04-27 08:38] LABS: Anion Gap 7 mmol/L; Blood Urea Nitrogen 11 mg/dL (9-20); Carbon Dioxide 22 mmol/L (22-30); Chloride 108 mmol/L (98-107); Glucose 93 mg/dL (74-99); Potassium 3.8 mmol/L (3.5-5.1); Sodium 137 mmol/L (137-145)
--- NOTE | 2018-04-27 08:55 | CONS ---
CONSULTATION This is a 62-year-old gentleman, well known to me from the [facility]ound [facility]. Patient was last seen in a in month of December and he was coming on a regular basis for venous stasis ulcer right lower extremity. The last time when it was seen, his ulcer was completely healed. He was discharged from the Wound Clinic. He developed swelling and pain in the right lower extremity. Ultrasound shows there is a DVT in the popliteal and greater saphenous vein, most likely chronic. He has history of atrial fibrillation, coronary artery disease, hyperlipidemia, and osteoarthritis. PHYSICAL EXAMINATION: The patient is seen in his room. NECK: Supple, trachea central. CHEST: Clear to auscultation. ABDOMEN: Soft. Femoral pulses are present. Patient has swelling of the right calf area. There is a venous stasis ulcer on the medial aspect of the right lower extremity. IMPRESSION: Recurrence of the venous stasis ulcer right lower extremity, history of chronic deep venous thrombosis. PLAN: Patient is on IV antibiotic under care of Dr. Armstrong and patient is on Coumadin. His INR is therapeutic. Recommendation is we place Medihoney gel to the wound and leg elevation and patient is on IV antibiotic, which will be continued. When discharged patient, I will follow in the Wound Clinic. In the meantime, will follow during the stay in the hospital. No role of surgical intervention at this point. MMODL / IJN: [id number] /
[2018-04-27] MEDS: ACETAMINOPHEN TAB 325 MG TAB PO PRN (16:13)
[2018-04-27 16:51] LABS: INR 1.8 (<1.2); Prothrombin Time 16.2 sec (9.0-12.0)
[2018-04-27] MEDS: WARFARIN 2.5 MG TAB PO SCH (17:56)
[2018-04-27] MEDS: ATORVASTATIN 40 MG TAB PO SCH (20:50)
--- NOTE | 2018-04-27 23:28 | PN ---
PROGRESS NOTE DATE OF SERVICE: 04/27/2018 PRESENTING COMPLAINT: Infected right foot. INTERVAL HISTORY: Patient presented with infection of the right foot. Bone scan is suggestive of osteomyelitis. Wound care is continuing. REVIEW OF SYSTEMS: Done for constitutional, cardiovascular, GI, pulmonary; relevant findings as above. CURRENT MEDICATIONS: Reviewed that include: 1. Vancomycin and. 2. Unasyn. EXAMINATION: Temperature 98.7, pulse 51, respirations 18, blood pressure 166/85, pulse ox 96% on room air. GENERAL APPEARANCE: Sitting up, awake. EYES: Pupils equal. Conjunctivae normal. HEENT: External nose and ears normal. Oral cavity normal. NECK: JVD not raised. Mass not palpable. RESPIRATORY: Effort normal. LUNGS: Decreased breath sounds. CARDIOVASCULAR: First and second sounds normal. No edema. ABDOMEN: Soft, nontender. Liver and spleen not palpable. PSYCHIATRY: Alert and oriented x3. Mood and affect were normal. Right foot wound. INVESTIGATIONS: INR 1.8. Potassium 3.8. ASSESSMENT: 1. Acute on chronic right foot wound from underlying peripheral artery disease with secondary infection causing sepsis, possibly osteomyelitis, growing multiple organisms. 2. History of atrial fibrillation. 3. Chronic deep venous thrombosis in the right lower extremity. 4. Gastroesophageal reflux disease. 5. Hyperlipidemia. 6. Essential hypertension. 7. Primary osteoarthritis. 8. Coronary artery disease with prior history of stent. PLAN: Continue current medication and treatment plan. Wound care to continue per Dr. Zimmer/Dr. Armstrong. PICC line and long-term antibiotics will be coordinated by Dr. Armstrong. MMODL / IJN: [id number] /
[2018-04-28] MEDS: SODIUM CHLORIDE 0.9% 1,000 ML IV SCH ×3 (00:37→17:06)
[2018-04-28] MEDS: AMPICILLIN-SULBACTAM 3 GM in SODIUM CHLORIDE 0.9% 100 ML IVPB SCH ×5 (00:45→23:56)
[2018-04-28] MEDS: HYDROcodone/APAP 10-325MG 1 EACH TAB PO PRN ×5 (03:00→20:59)
[2018-04-28 08:04] LABS: Basophils % (A) 0 %; Eosinophils # (A) 0.3 k/uL (0-0.7); Eosinophils % (A) 3 %; HCT 33.5 % (39.0-53.0); HGB 10.6 gm/dL (13.0-17.5); Lymphocytes # (A) 0.9 k/uL (1.0-4.8); Lymphocytes % (A) 12 %; MCH 30.5 pg (25.0-35.0); MCHC 31.7 g/dL (31.0-37.0); MCV 96.3 fL (80.0-100.0); Mean Platelet Volume 6.8; Monocytes # (A) 0.7 k/uL (0-1.0); Monocytes % (A) 8 %; Neutrophils # (A) 6.1 k/uL (1.3-7.7); Neutrophils % (A) 75 %; Platelet Count 127 k/uL (150-450); RBC 3.48 m/uL (4.30-5.90); RDW 13.2 % (11.5-15.5); WBC 8.1 k/uL (3.8-10.6)
[2018-04-28 08:12] LABS: Anion Gap 8 mmol/L; Blood Urea Nitrogen 11 mg/dL (9-20); Calcium 8.3 mg/dL (8.4-10.2); Carbon Dioxide 22 mmol/L (22-30); Chloride 107 mmol/L (98-107); Glucose 98 mg/dL (74-99); Sodium 137 mmol/L (137-145)
[2018-04-28] MEDS: METOPROLOL TARTRATE 50 MG TAB PO SCH ×2 (08:22→20:14)
[2018-04-28] MEDS: ASPIRIN 81 MG PO SCH (08:22)
[2018-04-28] MEDS: VANCOMYCIN 2,000 MG in SODIUM CHLORIDE 0.9% 500 ML IVPB SCH ×2 (08:23→20:15)
[2018-04-28 08:40] LABS: INR 2.5 (<1.2)
[2018-04-28 08:41] LABS: Prothrombin Time 22.3 sec (9.0-12.0)
[2018-04-28] MEDS ORDERED: LIDOCAINE 2% SYG (PF) 100 MG/5 ML MISCELLANE ONE (15:49)
--- NOTE | 2018-04-28 16:22 | IR ---
EXAMINATION TYPE: IR cvc insert >=5 years DATE OF EXAM: 04/28/2018 COMPARISON: NONE CLINICAL HISTORY: Infection Needs long-term intravenous access for antibiotics. PROCEDURE: After informed consent, the skin overlying the left basilic vein was localized with ultrasound and no libby to be compressible and patent. An ultrasound image was obtained and submitted on the patient's c jimenez. The overlying skin was prepped and draped and Lidocaine was used for local anesthesia. A skin martin was made with a scalpel. Access was gained to the vein under ultrasound guidance with a 21 gau ge needle and a 0.018 inch wire was advanced. Access site was dilated with Peel-Away sheath and cath eter tailored to the appropriate length and advanced such that the distal tip is at the cavoatrial ju nction. Spot image was obtained verifying placement. Catheter was fixed to the skin and a sterile d ressing was placed following hemostasis. Catheter was aspirated and flushed with saline. Patient wa s discharged in stable condition without complication. Maximal barrier technique is utilized. Ultras ound image is documented on the chart. Ultrasound used with sterile technique. Fluoro time and fluoroscopic images submitted to document procedure: 76 intraoperative images, 0.3 mi nutes fluoroscopy time IMPRESSION: STATUS POST ULTRASOUND AND FLUOROSCOPIC GUIDED PICC LINE PLACEMENT, READY FOR USE. THIS PROCEDURE WAS PERFORMED BY THE UNDERSIGNED.
[2018-04-28] MEDS: WARFARIN 2.5 MG TAB PO SCH (17:06)
[2018-04-28] MEDS ORDERED: VANCOMYCIN TROUGH DUE 1 EACH MISC MISCELLANE ONE (20:00)
[2018-04-28] MEDS: ATORVASTATIN 40 MG TAB PO SCH (20:14)
--- NOTE | 2018-04-28 22:35 | PN ---
PROGRESS NOTE DATE OF SERVICE: 04/28/2018 PRESENTING COMPLAINT: Infected right foot. INTERVAL HISTORY: This is a patient who presented with right foot osteomyelitis. I spoke to Dr. Bach, and PICC line will be done later today. In the meantime, Dr. Armstrong will be coordinating his antibiotics. farrowing worker is looking into the same. Patient is otherwise comfortable. REVIEW OF SYSTEMS: Done for constitutional, cardiovascular, GI, pulmonary; relevant findings as above. CURRENT MEDICATIONS: Reviewed. They include IV vancomycin and Unasyn. PHYSICAL EXAMINATION: Temperature 97.7, pulse 84, respiration 19, blood pressure 159/89, pulse ox 97% on room air. GENERAL APPEARANCE: Sitting up. Comfortable. EYES: Pupils equal. Conjunctivae normal. HEENT: External appearance of nose and ears normal. Oral cavity normal. NECK: JVD not raised. Mass not palpable. RESPIRATORY: Effort normal. LUNGS: Decreased breath sounds. CARDIOVASCULAR: First and second sounds normal. No edema. ABDOMEN: Soft, non-tender. Liver and spleen not palpable. PSYCHIATRY: Alert and oriented x3. Mood and affect normal. Lower extremity wound unchanged. INVESTIGATIONS: White count 8.1, hemoglobin 10.6, INR 2.5, potassium 4.0. BUN and creatinine are normal. ASSESSMENT: 1. Acute on chronic right foot wound from underlying peripheral arterial disease with secondary infection causing sepsis, possible osteomyelitis, growing multiple organisms. 2. History of atrial fibrillation. 3. Chronic deep venous thrombosis in the right lower extremity, on Coumadin. 4. Gastroesophageal reflux disease. 5. Hyperlipidemia. 6. Essential hypertension. 7. Primary osteoarthritis. 8. Coronary artery disease with prior history of stent. PLAN: Continue current medication and treatment plan. PICC line will be placed later this afternoon. Antibiotics to continue as per Dr. Armstrong and wound care per Dr. Mortensen. MMODL / IJN: [id number] /
--- NOTE | 2018-04-28 23:20 | P.PN ---
Subjective Progress Note Date: 04/28/18 This is a 62-year-old male well-known to ID service as he has been seen in the past most recently under the care of Dr. Mortensen in the wound healing Center and he was discharged from care on December 2017. Patient also has history of endovenous laser ablation done in [place] by Dr. Lopes in December. He has chronic wounds to the right lower extremity for 70 years. He states couple weeks ago the wound opened up and when he got up on Wednesday he noticed that it was very tender to his calf, warm and red. He did see Dr. Peralta last Wednesday and everything was fine at that time. He came into [facility] emergency center was found to have a fever of 100.9 , leukocytosis of 24.9. INR is 2.7. He is on chronic Coumadin for multiple DVTs. Ultrasound of the right leg showed old thrombus in the popliteal vein and superficial greater saphenous vein. Patient was started on Unasyn and vancomycin and [facility]. Patient does not recall his last tetanus up-to-date. 04/26/2018 reveals some improvement to the leg with some improved discomfort. Still very swollen and erythematous. 04/28/2018 patient has had some further improvement in the last day. Pain is improving. PICC line to be placed for his outpatient intravenous antibiotic therapy. Cultures are in progress injury finalized in the next day. Objective - Vital Signs Vital signs: Vital Signs Temp 97.7 F 04/28/18 15:11 Pulse 82 04/28/18 16:51 Resp 18 04/28/18 16:51 BP 168/91 04/28/18 16:51 Pulse Ox 97 04/28/18 16:51 Intake & Output 04/28/18 04/28/18 04/29/18 06:59 18:59 06:59 Intake Total 200 Balance 200 Intake: Oral 200 Other: Voiding Method Toilet Toilet Toilet # Voids 1 2 # Bowel Movements 0 - Exam Gen: This is a 62-year-old male. He is in bed and appears to be comfortable and in no acute distress. HEENT: Head is atraumatic, normocephalic. Pupils equal, round. Sclerae is anicteric. Dentition is in poor oral. Mucous membranes of the mouth are moist. NECK: Supple. No JVD. No lymphadenopathy. No thyromegaly. LUNGS: Clear to auscultation. No wheezes or rhonchi. No intercostal retractions. HEART: Regular rate and rhythm. No murmur. ABDOMEN: Soft. Bowel sounds are present. No masses. No tenderness. EXTREMITIES: Large ulceration to the right lower leg with tendon exposure and small ulcer to the right medial malleolus small superficial last ulcerations to the right lateral malleolus. Dorsalis pedis is palpable bilaterally. NEUROLOGICAL: Patient is awake, alert and oriented x3. Cranial nerves 2 through 12 are grossly intact. - Labs CBC & Chem 7: 04/28/18 07:39 04/28/18 07:39 Labs: Abnormal Lab Results - Last 24 Hours (Table) 04/28/18 04/28/18 04/28/18 Range/Units 07:39 07:39 07:39 RBC 3.48 L (4.30-5.90) m/uL Hgb 10.6 L (13.0-17.5) gm/dL Hct 33.5 L (39.0-53.0) % Plt Count 127 L (150-450) k/uL Lymphocytes # 0.9 L (1.0-4.8) k/uL PT 22.3 H (9.0-12.0) sec INR 2.5 H (<1.2) Calcium 8.3 L (8.4-10.2) mg/dL Microbiology - Last 24 Hours (Table) 04/25/18 12:58 Gram Stain - Final Leg - Right Wound Culture - Final Pseudomonas aeruginosa Escherichia coli Staphylococcus aureus 04/24/18 13:00 Blood Culture - Preliminary Blood No Growth after 96 hours Laboratory Results WBC 8.1 k/uL (3.8-10.6) 04/28/18 07:39 RBC 3.48 m/uL (4.30-5.90) L 04/28/18 07:39 Hgb 10.6 gm/dL (13.0-17.5) L 04/28/18 07:39 Hct 33.5 % (39.0-53.0) L 04/28/18 07:39 MCV 96.3 fL (80.0-100.0) 04/28/18 07:39 MCH 30.5 pg (25.0-35.0) 04/28/18 07:39 MCHC 31.7 g/dL (31.0-37.0) 04/28/18 07:39 RDW 13.2 % (11.5-15.5) 04/28/18 07:39 Plt Count 127 k/uL (150-450) L 04/28/18 07:39 Neutrophils % 75 % 04/28/18 07:39 Lymphocytes % 12 % 04/28/18 07:39 Monocytes % 8 % 04/28/18 07:39 Eosinophils % 3 % 04/28/18 07:39 Basophils % 0 % 04/28/18 07:39 Neutrophils # 6.1 k/uL (1.3-7.7) 04/28/18 07:39 Lymphocytes # 0.9 k/uL (1.0-4.8) L 04/28/18 07:39 Monocytes # 0.7 k/uL (0-1.0) 04/28/18 07:39 Eosinophils # 0.3 k/uL (0-0.7) 04/28/18 07:39 Basophils # 0.0 k/uL (0-0.2) 04/28/18 07:39 PT 22.3 sec (9.0-12.0) H 04/28/18 07:39 INR 2.5 (<1.2) H 04/28/18 07:39 APTT 40.1 sec (22.0-30.0) H 04/24/18 13:00 Sodium 137 mmol/L (137-145) 04/28/18 07:39 Potassium 4.0 mmol/L (3.5-5.1) 04/28/18 07:39 Chloride 107 mmol/L (98-107) 04/28/18 07:39 Carbon Dioxide 22 mmol/L (22-30) 04/28/18 07:39 Anion Gap 8 mmol/L 04/28/18 07:39 BUN 11 mg/dL (9-20) 04/28/18 07:39 Creatinine 0.67 mg/dL (0.66-1.25) 04/28/18 07:39 Est GFR (CKD-EPI)AfAm >90 (>60 ml/min/1.73 sqM) 04/28/18 07:39 Est GFR (CKD-EPI)NonAf >90 (>60 ml/min/1.73 sqM) 04/28/18 07:39 Glucose 98 mg/dL (74-99) 04/28/18 07:39 Plasma Lactic Acid Charlie 1.2 mmol/L (0.7-2.0) 04/24/18 13:00 Calcium 8.3 mg/dL (8.4-10.2) L 04/28/18 07:39 Total Bilirubin 1.0 mg/dL (0.2-1.3) 04/24/18 13:00 AST 46 U/L (17-59) 04/24/18 13:00 ALT 70 U/L (21-72) 04/24/18 13:00 Alkaline Phosphatase 95 U/L (38-126) 04/24/18 13:00 Total Protein 7.7 g/dL (6.3-8.2) 04/24/18 13:00 Albumin 3.6 g/dL (3.5-5.0) 04/24/18 13:00 Vancomycin Trough 13.9 ug/mL 04/28/18 19:41 Microbiology 04/25/18 12:58 Leg - Right Gram Stain - Final 04/25/18 12:58 Leg - Right Wound Culture - Final Pseudomonas aeruginosa Escherichia coli Staphylococcus aureus 04/24/18 13:00 Blood Blood Culture - Preliminary No Growth after 96 hours Assessment and Plan (1) Wound infection Narrative/Plan: pleasant gentleman is quite comfortable. He does answer to phone calls while I am present from his work. He relates they're pressuring him to come back as soon as possible due to the upcoming audit. The patient has had these to begin worsening of the chronic ulceration to the left lower extremity and with the development of significant erythema he presented to Hospital where he was found evidence of sepsis with leukocytosis from the cellulitis to the limb. Imaging has revealed an old clot there are no new acute clots at this time. Does have some significant edema to the limb. Vascular evaluation is being requested to determine his current vascular status and need for any further intervention. As noted he has had vascular interventions done at the [facility] last year. While cultures are pending he is on vancomycin and Unasyn based on prior culture results. Continue local care at this point in time with elevation and will utilize absorptive silver for now. Update his tetanus vaccine. Make sure he has a multivitamin. Leukocytosis appears to be directly related to the significant cellulitis and was monitored throughout his stay. He is chronically anticoagulated and INR appears to be therapeutic at 2.7. Patient understands importance of elevation and wound care. Requesting bone scan to evaluate the possibility of underlying deep infection, cultures are in process. Given the longevity there is concern there could be underlying osteomyelitis and may require outpatient intravenous antibiotic therapy. This can be arranged before his discharge. bone scan has confirmed the presence of osteomyelitis Cultures from process. We'll need to have significant improvement of swelling before ready for dischage 04/28/2018 patient is now having some further improvement. He understands the importance of his antibiotic therapy at discharge given the underlying osteomyelitis. The polymicrobial infection likely be treated with oral antibiotic with Cipro as well as an antistaphylococcal agent hopefully ceftriaxone. Orders are sent to the outpatient infusion company for verification. Current Visit: Yes Status: Acute Code(s): T14.8XXA - OTHER INJURY OF UNSPECIFIED BODY REGION, INITIAL ENCOUNTER; L08.9 - LOCAL INFECTION OF THE SKIN AND SUBCUTANEOUS TISSUE, UNSP SNOMED Code(s): 57610752
[2018-04-28 23:29] VITALS: RESP 16
[2018-04-29] MEDS: HYDROcodone/APAP 10-325MG 1 EACH TAB PO PRN ×4 (01:13→15:03)
[2018-04-29 05:58] VITALS: BP 135/83; PULSE 78; TEMP 97.2
[2018-04-29] MEDS: AMPICILLIN-SULBACTAM 3 GM in SODIUM CHLORIDE 0.9% 100 ML IVPB SCH (06:20)
[2018-04-29] MEDS: SODIUM CHLORIDE 0.9% 1,000 ML IV SCH ×2 (06:24→15:04)
[2018-04-29 07:55] LABS: Anion Gap 6 mmol/L; Blood Urea Nitrogen 13 mg/dL (9-20); Carbon Dioxide 26 mmol/L (22-30); Chloride 106 mmol/L (98-107); Glucose 95 mg/dL (74-99); Potassium 4.2 mmol/L (3.5-5.1); Sodium 138 mmol/L (137-145)
[2018-04-29 07:56] LABS: Calcium 8.4 mg/dL (8.4-10.2)
[2018-04-29] MEDS ORDERED: VANCOMYCIN 2,250 MG in SODIUM CHLORIDE 0.9% 500 ML IVPB SCH (09:00)
[2018-04-29] MEDS: ASPIRIN 81 MG PO SCH (09:17)
[2018-04-29] MEDS: METOPROLOL TARTRATE 50 MG TAB PO SCH (09:17)
[2018-04-29] MEDS ORDERED: CIPROFLOXACIN HCL 500 MG TAB PO SCH (11:30)
[2018-04-29] MEDS ORDERED: cefTRIAXone IN SWFI 2,000 MG/20 ML SYRINGE IVP SCH (12:30)
--- NOTE | 2018-05-04 13:08 | DS ---
DISCHARGE SUMMARY DATE OF ADMISSION: 04/24/2018. DATE OF DISCHARGE: 04/29/2018 FINAL DIAGNOSES: 1. Right foot osteomyelitis, growing multiple organisms from underlying peripheral artery disease. 2. History of atrial fibrillation, currently in sinus rhythm. 3. Chronic deep venous thrombosis in the right lower extremity, on Coumadin. 4. Gastroesophageal reflux disease. 5. Hyperlipidemia. 6. Essential hypertension. 7. Primary osteoarthritis. 8. Coronary artery with prior history of stent. CONSULTATION: 1. Dr. Armstrong, Infectious Disease. 2. Dr. Bach from Interventional Radiology. 3. Dr. Mortensen from Vascular Surgery. HOSPITAL COURSE: This patient with known peripheral artery disease, presented with infection of the right foot. A bone scan was done. On the day of discharge, I spoke to the radiologist and it was his impression that the bone scan would be most suggestive of cellulitis rather than osteomyelitis. I did discuss with Dr. Armstrong at this point because of the clinical picture, we will continue with IV antibiotics and Dr. Armstrong will determine down the road based on how the wound is doing. Patient's wounds were doing much better by the time of discharge. The pictures are in the chart. Overall, patient is feeling better. Patient's wound cultures are growing multiple organisms, which is typical of the same. PHYSICAL EXAMINATION: Afebrile, pulse 72, respiration 16, blood pressure 135/83, pulse ox 97% on room air. LUNGS: Slightly decreased breath sounds. CARDIOVASCULAR: First and second sounds are normal. Right foot wound. DISCHARGE MEDICATIONS: 1. Lopressor 100 mg p.o. b.i.d. 2. Cecilia 10 one tablet q.4 p.r.n. 3. Lipitor 40 mg q.h.s. 4. Coumadin 5 mg on Tuesdays. 5. Aspirin 81 mg a day. 6. Coumadin 2.5 mg other days of the week. 7. Vancomycin 2 g q.24 hours. 8. Cipro 500 mg q.12. 9. Ceftriaxone 2 g IV piggyback q.24 for 40 days. Final duration will be determined by Dr. Armstrong. Labs CBC, BMP weekly results to Dr. Armstrong. Follow with Dr. Peralta on 05/10/2018. Follow up with Dr. Armstrong in 1 week. Follow up with Dr. Mortensen. Patient is scheduled for outpatient IV antibiotics at [facility], the medical office building. Discussion and discharge planning more than 35 minutes. Care was discussed with the patient in detail. MMODL / IJN: [id number] /
--- NOTE | 2018-05-05 08:56 | CDI ---
Last Revision, August 2017 Documentation Clarification Form Date: 05/05/18 From: Hillary Vegas Phone: If you have a question regarding this query, please contact Machelle Majano at [phone] between 8am and 5pm. Admit Date: 04/24/2018 2:33:00 PM Patient Name: Nakul Hedrick Visit Number: [id number] Discharge Date: 04/29/18 ATTENTION: The Clinical Documentation Specialists (CDI) and [facility] Coding Staff appreciate your assistance in clarifying documentation. Please respond to the clarification below the line at the bottom and electronically sign. The CDI & [facility] Coding staff will review the response and follow-up if needed. Please note: Queries are made part of the Legal Health Record. If you have any questions, please contact the author of this message via ITS. Kishore Roberts MD Sepsis is documented in the H&P, Dr. Armstrong consult note and in the 04/25 thru 04/28 progress notes. However, it is not documented in the discharge summary. History/Risk Factors: Patient was admitted with acute osteomyelitis and infected wound from chronic venous stasis. Clinical Indicators: Elevated white count with a left shift WBC/Left Shift: 24.5/22.7 Lactic acid: 1.2 Blood cultures: No growth after 144 hours. Vitals signs on admission: T. 98.8, P. 97, R. 18, BP 144/80 Treatment: Antibiotics: IV Rocephin, IV Vancomycin, PO Cipro IV Bolus: Sodium Chloride 1,000 mls @ 999 mls/hr In your professional opinion, please clarify if these findings signify: Sepsis ruled out Sepsis Ruled in Other, please specify Unable to determine MTDD
--- NOTE | 2018-05-14 12:18 | DS ---
DISCHARGE SUMMARY ADDENDUM: To discharge summary on Nakul Hedrick. DATE OF ADMISSION: 04/24/2018 DATE OF DISCHARGE: 04/29/2018 FINAL DIAGNOSES: 1. Right foot osteomyelitis acute from multiple organisms from underlying peripheral arterial disease causing sepsis present on admission. MMODL / IJN: [id number] /
== END 2018-04-29 15:29 | disposition home or self-care (01) | DRG 872 ==
LOC: EC 12:04 → 4MS4W 14:33
PROVIDERS: ADMIT Hospitalist; ATTEND Hospitalist
PROC: 02HV33Z Insertion of Infusion Device into Superior Vena Cava, Percutaneous Approach (ICD-10-PCS; principal; 2018-04-28 15:33)
DX: A41.9 Sepsis, unspecified organism (principal); M86.162 Other acute osteomyelitis, left tibia and fibula; I82.531 Chronic embolism and thrombosis of right popliteal vein; I82.891 Chronic embolism and thrombosis of other specified veins; L03.115 Cellulitis of right lower limb; E78.5 Hyperlipidemia, unspecified; I10 Essential (primary) hypertension; I25.10 Atherosclerotic heart disease of native coronary artery without angina pectoris; I25.2 Old myocardial infarction; I48.91 Unspecified atrial fibrillation; I87.2 Venous insufficiency (chronic) (peripheral); J44.9 Chronic obstructive pulmonary disease, unspecified; K21.9 Gastro-esophageal reflux disease without esophagitis; M19.91 Primary osteoarthritis, unspecified site; B19.20 Unspecified viral hepatitis C without hepatic coma; F41.9 Anxiety disorder, unspecified; B96.89 Other specified bacterial agents as the cause of diseases classified elsewhere; Z79.01 Long term (current) use of anticoagulants; Z79.82 Long term (current) use of aspirin; Z79.899 Other long term (current) drug therapy; Z86.711 Personal history of pulmonary embolism; Z87.891 Personal history of nicotine dependence; Z95.5 Presence of coronary angioplasty implant and graft; Z87.01 Personal history of pneumonia (recurrent); Z82.49 Family history of ischemic heart disease and other diseases of the circulatory system
CPT/HCPCS: 36415; 36569; 76937; 77001; 78315; 80048; 80053; 80202; 83605; 85025; 85610; 85652; 85730; 86140; 87040; 87070; 87077; 87186; 87205; 90715; 96361; 96365; 96367; 96375; 99284

== ENCOUNTER → 2018-07-25 | Outpatient (CLI) | payer OTHER ==
--- NOTE | 2018-07-25 15:24 | US ---
EXAMINATION TYPE: US venous doppler duplex LE DATE OF EXAM: 07/25/2018 2:45 PM COMPARISON: US 2018 CLINICAL HISTORY: L97.919Non-pressure chronic ulcer of. On and off right medial ankle ulcer x 9 years , history of right leg DVT, patient on blood thinners. SIDE PERFORMED: Bilateral TECHNIQUE: The lower extremity deep venous system is examined utilizing real time linear array sonog steve with graded compression, doppler sonography and color-flow sonography. VESSELS IMAGED: External Iliac Vein (EIV) Common Femoral Vein Deep Femoral Vein Greater Saphenous Vein * Femoral Vein Popliteal Vein Small Saphenous Vein * Proximal Calf Veins (* superficial vessels) Right Leg: Positive for DVT mid femoral vein through distal popliteal vein, appears non occluding: p artial compression and partial flow seen, cannot exclude acute on chronic. GSV shows thrombus, large non compressible vein. Left Leg: Appears negative for DVT Right groin: 5.7 x 1.5 x 3.6cm lymph node IMPRESSION: 1. Positive DVT right lower extremity. See above.
== END | disposition home or self-care (01) ==
LOC: RADUSWWP 14:05
PROVIDERS: ATTEND Internal Medicine Infectious Disease
DX: I82.411 Acute embolism and thrombosis of right femoral vein (principal); I82.431 Acute embolism and thrombosis of right popliteal vein; L97.919 Non-pressure chronic ulcer of unspecified part of right lower leg with unspecified severity
CPT/HCPCS: 93970

== ENCOUNTER → 2022-08-15 | Outpatient (CLI) | payer OTHER ==
--- NOTE | 2022-08-18 14:16 | MR ---
EXAMINATION TYPE: MR Prostate wo/w con DATE OF EXAM: 08/15/2022 8:25 AM COMPARISON: None. CLINICAL INDICATION:Male, 67 years old with history of R97.20 ELEVATED PROSTATE SPECIFIC ANTIGEN; TECHNIQUE: Multi-planar, multi-sequence imaging of the pelvis is performed prior to and following the uncomplicated administration of bolus intravenous gadolinium. CONTRAST: 12 Gadavist Interpretive Criteria: PI-RADS v2.1 SERUM PSA: 4.5 on 04/13/2022 2.9 on 04/03/2022 1.2 on 10/22/2020 0.5 on 09/01/2019 SURGICAL PATHOLOGY: No data available. FINDINGS: Prostatic dimensions: 4.6 x 3.5 x 2.0 cm. "Bullet" Volume:32.52 (PSA density=0.14 ng/mL/mL) CENTRAL GLAND (Central and Transition Zones/CZ+TZ): Left hypertrophic stromal nodule without suspicious lesion. PI-RADS 2 PERIPHERAL ZONE (PZ): Asymmetric left peripheral gland apex low T2 signal with associated high DWI and low ADC signal best appreciated on DWI/ADC image 13 measuring up to 7 mm. PIRADS-4 SEMINAL VESICLES (SV): Symmetric and unremarkable. PERIPROSTATIC TISSUES: Unremarkable. LYMPH NODES: No enlarged pelvic lymph node. Right inguinal proximal thigh lymph nodes measuring up to 14 mm in short axis. This is the area of pr ior pseudoaneurysm formation and likely representing sequela of prior injury appreciated on 01/23/2016 CT angiogram. REMAINING PELVIS: Bladder wall is within normal limits given distention. No abnormal free or organized intrapelvic fluid collection. No pathologic bowel dilation or mural thickening. Scattered clonic diverticula are present. Fatty changes to the left inguinal hernia. OSSEOUS STRUCTURES: No suspicious osseous abnormality. Degeneration changes of the hips. Subchondral cystic changes most pronounced along the anterior aceta bulum bilaterally. IMPRESSION: BI-RADS 4 lesion left peripheral gland apex near the urethra measuring up to 7 mm.
== END | disposition home or self-care (01) ==
LOC: RADMRIMAIN 07:27
PROVIDERS: ATTEND Urology
DX: N36.8 Other specified disorders of urethra (principal)
CPT/HCPCS: 72197; A9585

== ENCOUNTER → 2023-02-11 | Outpatient (CLI) | payer OTHER ==
[2023-02-11 16:20] LABS: Appearance,Urine Clear (Clear); Bilirubin,Urine Negative (Negative); Blood,Urine Negative (Negative); Color,Urine Yellow; Glucose,Urine (UA) Negative (Negative); Ketones,Urine Negative (Negative); Leukocyte Esterase,Urine Negative (Negative); Nitrite,Urine Negative (Negative); PH, Urine 5.5 (5.0-8.0); Protein,Urine Negative (Negative); Specific Gravity,Urine 1.027 (1.001-1.035); Urobilinogen,Urine <2.0 mg/dL (<2.0)
[2023-02-11 16:45] LABS: INR 2.6 (<1.2); Partial Thromboplastin Time 39.2 sec (22.0-30.0); Prothrombin Time 24.9 sec (9.0-12.0)
[2023-02-11 21:34] LABS: Basophils # (A) 0.05 X 10*3/uL (0.00-0.10); Basophils % (A) 0.7 %; Eosinophils # (A) 0.24 X 10*3/uL (0.04-0.35); Eosinophils % (A) 3.5 %; HCT 41.2 % (39.6-50.0); HGB 13.3 g/dL (13.0-17.0); Immature Grans, Automated 0.3 %; Lymphocytes # (A) 1.42 X 10*3/uL (0.90-5.00); MCH 31.4 pg (27.0-32.0); MCHC 32.3 g/dL (32.0-37.0); MCV 97.4 fL (80.0-97.0); Mean Platelet Volume 10.2 fL (9.5-12.2); Monocytes # (A) 0.57 X 10*3/uL (0.20-1.00); Monocytes % (A) 8.4 %; NRBC Per 100 WBC 0 /100 WBCS (0.0-0.0); Neutrophils # (A) 4.47 X 10*3/uL (1.80-7.70); Neutrophils % (A) 66.1 %; Platelet Count 184 X 10*3/uL (140-440); RBC 4.23 X 10*6/uL (4.40-5.60); RDW 12.9 % (11.5-14.5); WBC 6.77 X 10*3/uL (4.50-10.00)
[2023-02-11 21:59] LABS: African American GFR (CKD) 87.9 (60.0-200.0); Albumin 4.4 g/dL (3.8-4.9); Albumin/Globulin Ratio 1.3 (1.60-3.17); Anion Gap 10.3 mmol/L (10.00-18.00); BUN/Creat Ratio 18.16 Ratio (12.00-20.00); Blood Urea Nitrogen 18.7 mg/dL (9.0-27.0); Calcium 9.4 mg/dL (8.7-10.3); Carbon Dioxide 24.3 mmol/L (20.0-27.5); Globulin 3.4 g/dL (1.6-3.3); Non-African American GFR(CKD) 75.9 (60.0-200.0); Potassium 3.8 mmol/L (3.5-5.5); Total Bilirubin 0.5 mg/dL (0.30-1.20); Total Protein 7.7 g/dL (6.2-8.2)
== END | disposition home or self-care (01) ==
LOC: LABWHC1 15:29
PROVIDERS: ATTEND Family Medicine
DX: Z01.812 Encounter for preprocedural laboratory examination (principal)
CPT/HCPCS: 36415; 80053; 81003; 85025; 85610; 85730

== ENCOUNTER → 2023-02-18 | Outpatient (CLI) | payer OTHER ==
--- NOTE | 2023-02-18 15:41 | XR ---
EXAMINATION TYPE: XR chest 2V DATE OF EXAM: 02/18/2023 COMPARISON: 09/11/2017 TECHNIQUE: PA and lateral views submitted. HISTORY: Presurgical testing FINDINGS: The lungs are clear and there is no pneumothorax, pleural effusion, or focal pneumonia. Heart size normal and no overt failure. Osseous structures demonstrate hypertrophic and degenerative changes of the spine. Hyperinflation compatible COPD. Hypertrophic and degenerative changes in the spine. IMPRESSION: 1. No acute process. Correlate for COPD
[2023-02-19 02:11] LABS: African American GFR (CKD) 91.1 (60.0-200.0); Anion Gap 10.9 mmol/L (10.00-18.00); BUN/Creat Ratio 18.8 Ratio (12.00-20.00); Blood Urea Nitrogen 18.8 mg/dL (9.0-27.0); Calcium 9.3 mg/dL (8.7-10.3); Carbon Dioxide 23.1 mmol/L (20.0-27.5); Non-African American GFR(CKD) 78.6 (60.0-200.0); Potassium 4.2 mmol/L (3.5-5.5)
== END | disposition home or self-care (01) ==
LOC: LABPAT 14:34
PROVIDERS: ATTEND Urology
DX: Z01.818 Encounter for other preprocedural examination (principal); C61 Malignant neoplasm of prostate; R31.29 Other microscopic hematuria; R06.02 Shortness of breath
CPT/HCPCS: 71046; 80048; 86850; 86900; 86901

== ENCOUNTER 2023-02-24 09:33 | Day surgery (SDC) | payer OTHER ==
[~2023-02-24 09:33] MED LIST: DEXAMETHASONE SOD PHOSPHATE 4 MG/ML 1 ML VIAL IV ONE; HEPARIN SODIUM,PORCINE/PF 5,000 UNIT/0.5 ML SYRINGE SQ PRN; LIDOCAINE 1% (10MG/ML) FOR IV START INTRADERMA PRN; ONDANSETRON 4 MG/2 ML VIAL IVP ONE
[2023-02-24] MEDS ORDERED: LACTATED RINGERS 1,000 ML IV ONE (09:43)
[2023-02-24] MEDS: LACTATED RINGERS 1,000 ML IV SCH (09:43)
[2023-02-24 11:02] LABS: Prothrombin Time 10.6 sec (9.0-12.0)
[2023-02-24] MEDS ORDERED: fentaNYL (PF) 50 MCG/ML 2 ML AMP IVP ONE (11:07)
[2023-02-24] MEDS ORDERED: MIDAZOLAM 2 MG/2 ML VIAL IVP ONE (11:07)
[2023-02-24] MEDS ORDERED: LIDOCAINE 2% INJ 20 MG/ML (2 ML VIAL) ONE (11:38)
[2023-02-24] MEDS ORDERED: PROPOFOL 10 MG/ML 20 ML VIAL IV ONE (11:38)
[2023-02-24] MEDS ORDERED: fentaNYL (PF) 50 MCG/ML 2 ML AMP ONE (11:38)
[2023-02-24] MEDS ORDERED: ROPIVACAINE 5 MG/ML 30 ML VIAL ONE (11:38)
[2023-02-24] MEDS ORDERED: SUCCINYLCHOLINE CHLORIDE 200 MG/10 ML VIAL IV ONE (11:38)
[2023-02-24] MEDS ORDERED: NEOSTIGMINE 1 MG/ML 10 ML VIAL ONE (11:38)
[2023-02-24] MEDS ORDERED: MIDAZOLAM 2 MG/2 ML VIAL ONE (11:38)
[2023-02-24] MEDS ORDERED: HYDROmorphone (PF) 1 MG/ML ONE (11:38)
[2023-02-24] MEDS ORDERED: SODIUM CHLORIDE 0.9% (PF) 10 ML VIAL ONE (11:38)
[2023-02-24] MEDS ORDERED: ROCURONIUM 10 MG/ML (5 ML VIAL) IV ONE (11:38)
[2023-02-24] MEDS ORDERED: GLYCOPYRROLATE 0.2 MG/ML 2 ML VIAL ONE (11:38)
--- NOTE | 2023-02-24 11:47 | P.HPIHPCON ---
History of Present Illness H&P Date: 02/23/23 Chief Complaint: Prostate cancer This is a 67 yo male with hx of jose 7 prostate cancer. Option of robotic radical prostatectomy vs radiation therapy was discussed with him in details, risk and benefit of each approach was discussed. He agreed to proceed with a robotic radical prostatectomy. The risk of bleeding, infection, urinary incontinence, erectile dysfunction. Discussed risk of cancer recurrence and the need of surveillance postoperatively. risk of injury to nearby organs was discussed. Discussed risk of anesthesia which includes but not limited to heart attack, stroke, blood clots. He understood all the risk and agreed to proceed Consent for Procedure: I have explained the operation/procedure to the patient, including the risks, benefits, side effects, alternative therapies (including not receiving the proposed treatment or service), the likelihood of the patient achieving his/her goals, and potential recuperation problems for the procedure/sedation/analgesia, as well as any blood products, if indicated. I also explained to the patient the risks, benefits and side effects of the alternatives, as well as the risks related to not receiving the proposed procedure, care, treatment, or services. Past Medical History Past Medical History: Atrial Fibrillation, Chest Pain / Angina, Deep Vein Thrombosis (DVT), GERD/Reflux, Hyperlipidemia, Hypertension, Liver Disease, Myocardial Infarction ([place]), Osteoarthritis (OA), Pneumonia, Prostate Disorder, Pulmonary Embolus (PE), Vascular Disorder Additional Past Medical History / Comment(s): HAS A SKIN ULCER ON RIGHT ANKLE (SINCE VENOUS ABLATION, HAS BEEN TO WOUND CENTER, IT STILL HAS NOT HEALED, . SOB with activity, hepatitis C. dvt rt leg Last Myocardial Infarction Date:: 04/2013 History of Any Multi-Drug Resistant Organisms: None Reported Past Surgical History: Heart Catheterization With Stent Additional Past Surgical History / Comment(s): throat and vocal cords scraped (NEG). 08/03/14 Venous ablation done at [facility]. ashley cataracts with lens implants Past Anesthesia/Blood Transfusion Reactions: No Reported Reaction Additional Past Anesthesia/Blood Transfusion Reaction / Comment(s): no blood tx hx Date of Last Stent Placement:: 05/16/2013 Smoking Status: Former smoker - Past Family History Mother Family Medical History: Coronary Artery Disease (CAD) Sister(s) Family Medical History: Deep Vein Thrombosis (DVT) Medications and Allergies Home Medications Medication Instructions Recorded Confirmed Type Metoprolol Tartrate [Lopressor] 100 mg PO BID 01/22/14 02/24/23 History HYDROcodone/APAP 10-325MG [[place] 1 tab PO Q4H PRN 03/01/17 02/24/23 History 10-325] Atorvastatin [Lipitor] 40 mg PO HS 09/08/17 02/24/23 History Warfarin Sodium 2.5 mg PO TUFRSA 11/01/17 02/24/23 History Aspirin [Children's Aspirin] 81 mg PO DAILY 04/24/18 02/24/23 History Warfarin [Coumadin] 5 mg PO SUMOWETH 04/24/18 02/24/23 History Allergies Allergy/AdvReac Type Severity Reaction Status Date / Time apixaban [From Eliquis] AdvReac Confusion Verified 02/22/23 12:03 Surgical - Exam - General no distress, no pain - Eyes normal ocular movement, no pale - ENT normal nares, normal mucosa - Respiratory normal expansion, normal respiratory effort - Abdomen Abdomen: soft, non tender - Psychiatric oriented to time, oriented to person, oriented to place Assessment and Plan Assessment: Wire for robotic radical prostatectomy, possible pelvic lymph node dissection
[2023-02-24] MEDS ORDERED: BUPIVACAINE (PF) 0.25% 30 ML VIAL SQ ONE (12:07)
--- NOTE | 2023-02-24 12:11 | P.ANPRN ---
Procedure Note - Anesthesia - Nerve Block Performed Bilateral Erector Spinae Time Out Performed: Yes (:) Date of Procedure: 02/24/23 Procedure Start Time: Procedure Stop Time: :13 Location of Patient: PreOp Indication: Acute Post-Operative Pain, Requested by Surgeon (Dr Tony) Sedation Type: Sedate with meaningful contact maintained Preparation: Sterile Prep Position: Prone Catheter: None Needle Types: Pajunk Needle Gauge: 21 Ultrasound used to visualize needle placement: Yes Ultrasound used to observe medication spread: Yes Injectate: 0.5% Ropivacaine (see comment for volume) (15cc +10cc PF Normal saline each side) Blood Aspirated: No Pain Paresthesia on Injection Noted: No Resistance on Injection: Normal Image Stored and Saved: Yes Events: Uneventful and Well Tolerated
[2023-02-24] MEDS ORDERED: HYDROcodone/APAP 10-325MG 1 EACH TAB PO PRN (15:58)
[2023-02-24] MEDS ORDERED: ONDANSETRON 4 MG/2 ML VIAL IVP PRN (15:59)
[2023-02-24] MEDS ORDERED: HYDROmorphone 1 MG/ML 1 ML SYRINGE IVP PRN (15:59)
--- NOTE | 2023-02-24 16:07 | P.OP ---
Date of Procedure: 02/24/23 Preoperative Diagnosis: Prostate cancer Postoperative Diagnosis: Same Procedure(s) Performed: Robotic radical prostatectomy Implants: none Anesthesia: LALITA Surgeon: Andrea Tony Estimated Blood Loss (ml): 100 Pathology: other (Prostate and bilateral seminal vesicle) Condition: stable Disposition: PACU Indications for Procedure: This is a 67 yo male with hx of jose 7 prostate cancer. Option of robotic radical prostatectomy vs radiation therapy was discussed with him in details, risk and benefit of each approach was discussed. He agreed to proceed with a robotic radical prostatectomy. The risk of bleeding, infection, urinary incontinence, erectile dysfunction. Discussed risk of cancer recurrence and the need of surveillance postoperatively. risk of injury to nearby organs was discussed. Discussed risk of anesthesia which includes but not limited to heart attack, stroke, blood clots. He understood all the risk and agreed to proceed Operative Findings: Uncomplicated Radical prostatectomy Description of Procedure: After preoperative antibiotics were started, the patient was taken to the operating room. Anesthesia was induced and the patient was placed in supine position, with adequate padding of the pressure points, shoulders, back, legs and arms. He was then prepped and draped in the standard fashion. A critical pause was performed using two patient identifiers. A 16F aceves catheter was placed to gravity drainage. A pneumo-peritoneum was created with placement of a Veress needle to 20 mm Hg without complication, and a 8 Fr trocar was placed above the umbillicus. Under direct vision a 8mm robotic ports was placed lateral to each rectus slightly below the camera port. The left iliac fossa 8mm port was placed. The right studio assistant right iliac fossa 12mm port and right paramedian 5mm portwere placed. After the patient was placed in the trendelenberg position, the robot was then docked to the 8mm robotic ports and then each robotic arm and tower was checked in relation to the patient's legs and hands to avoid inadvertent compression. The peritoneal cavity was inspected. An inverted U-shaped incision began laterally to the left medial umbilical liga ment and extended high across the midline to the right umbilical ligament. The limbs of the "U" extended to the level of the vasa on both sides. We next developed the preperitoneal space and the space of Retzius. Cautery was used to dissected the bladder away from the prostate. After the anterior bladder neck was incised and the bladder entered the the posterior bladder neck was exposed and the ureteral orifces identified. The posterior bladder neck was then incised and dissected away from the prostate. The vas and the seminal vesicles were now exposed and dissected to their insertions into the prostate and were not spared. The posterior layer of the Denonvillier's fascia was incised to enter bar the plane between prostate and perirectal fat. Each lateral pedicle was controlled with clips and cautery for hemostasis. Partial nerve preservation was performed on the left, complete nerve preservation was performed on the right The puboprostatic ligament was incised where it inserted into the apex of the prostate and a plane between urethra and dorsal venous complex developed to expose the anterior urethral surface. The anterior wall of the urethra was transected with the cut setting a few millimeters distal to the apex of the prostate. The dorsal vein was ligated using 3-0 V lock The urethrovesical anastomosis was performed . the posterior denovillers was reapproximated using 3-0 V lock. A 6 and 9inch 3-0 V-Lock suture was used to anastomose the urethra and bladder, starting at the 6:00 posterior position. Mucosa was secured in every stitch, to ensure a mucosa to mucosa anastomosis. The stitch was regularly cinched and the anastomosis tightened. Care was taken to not violate the ureteral orifices. The Aceves catheter was advanced, the bladder filled, and the anastomosis was tested, as described above. Anastomsis was watertight at 200 mL The periumbilical fascia was closed with 1-0-PDS suture in figure of eight fashion. All ports were closed with a subcuticular 4-0 monocryl and Dermabond. Sponge, instrument, and needle counts were correct at the end of the case x2. All specimens including prostate and lymph nodes were sent to pathology for diagnosis and will be available in a week. The patient tolerated the surgery well and without complication. He awoke without difficulty and was taken to the recovery room in stable condition
[2023-02-24] MEDS: HYDROmorphone 0.5 MG/0.5 ML SYRINGE IVP PRN ×3 (16:11→16:55)
[2023-02-24] MEDS: KETOROLAC 15 MG/ML 1 ML VIAL IVP SCH ×3 (17:09→23:46)
[2023-02-24] MEDS: D5-0.45% NACL WITH KCL 20MEQ/L 1,000 ML IV SCH (18:51)
[2023-02-24] MEDS: HEPARIN SODIUM,PORCINE/PF 5,000 UNIT/0.5 ML SYRINGE SQ SCH ×2 (18:53→23:46)
[2023-02-24] MEDS ORDERED: ATORVASTATIN 40 MG TAB PO SCH (21:00)
[2023-02-24] MEDS: METOPROLOL TARTRATE 50 MG TAB PO SCH (21:14)
[2023-02-25] MEDS: D5-0.45% NACL WITH KCL 20MEQ/L 1,000 ML IV SCH ×2 (02:26→10:25)
[2023-02-25] MEDS: KETOROLAC 15 MG/ML 1 ML VIAL IVP SCH ×2 (06:02→11:53)
[2023-02-25] MEDS: HEPARIN SODIUM,PORCINE/PF 5,000 UNIT/0.5 ML SYRINGE SQ SCH (08:41)
[2023-02-25] MEDS: METOPROLOL TARTRATE 50 MG TAB PO SCH (08:41)
[2023-02-25] MEDS: LACTATED RINGERS 1,000 ML IV SCH (10:27)
[2023-02-25 11:48] VITALS: BP 159/81; PULSE 71; RESP 18; TEMP 98.5
[2023-02-25] MEDS ORDERED: OXYBUTYNIN XL 5 MG TAB.ER.24 PO SCH (16:15)
--- NOTE | 2023-02-26 16:41 | P.DS ---
Providers Attending physician: Andrea Tony MD Primary care physician: [facility] Course: This is 67-year-old male with history of prostate cancer. Underwent a robotic prostatectomy on February 24, please see op note dated 02/24 for surgery details . Patient was admitted to the hospital postoperatively. He was discharged home on postop day #1 with the Hall catheter. At time of discharge he was tolerating a diet, ambulating , pain was controlled Plan - Discharge Summary Discharge Rx Participant: No New Discharge Prescriptions: New Ketorolac [Toradol] 10 mg PO Q6HR PRN #15 tab PRN Reason: Pain Ciprofloxacin HCl [Cipro] 250 mg PO Q12HR #6 tablet HYDROcodone/APAP 7.5-325MG [[place] 7.5-325] 1 tab PO Q6HR PRN 3 Days #12 tab PRN Reason: Pain No Action Metoprolol Tartrate [Lopressor] 100 mg PO BID HYDROcodone/APAP 10-325MG [[place] 10-325] 1 tab PO Q4H PRN PRN Reason: Pain Atorvastatin [Lipitor] 40 mg PO HS Warfarin Sodium 2.5 mg PO TU Warfarin [Coumadin] 5 mg PO SUMOWETH Aspirin [Children's Aspirin] 81 mg PO DAILY Discharge Medication List Metoprolol Tartrate [Lopressor] 100 mg PO BID 01/22/14 [History] HYDROcodone/APAP 10-325MG [[place] 10-325] 1 tab PO Q4H PRN 03/01/17 [History] Atorvastatin [Lipitor] 40 mg PO HS 09/08/17 [History] Warfarin Sodium 2.5 mg PO TUFRSA 11/01/17 [History] Aspirin [Children's Aspirin] 81 mg PO DAILY 04/24/18 [History] Warfarin [Coumadin] 5 mg PO SUMOWETH 04/24/18 [History] Ciprofloxacin HCl [Cipro] 250 mg PO Q12HR #6 tablet 02/25/23 [Rx] HYDROcodone/APAP 7.5-325MG [[place] 7.5-325] 1 tab PO Q6HR PRN 3 Days #12 tab 02/25/23 [Rx] Ketorolac [Toradol] 10 mg PO Q6HR PRN #15 tab 02/25/23 [Rx] Follow up Appointment(s)/Referral(s): Andrea Tony MD [STAFF PHYSICIAN] - 1 Week Patient Instructions/Handouts: Ciprofloxacin (By mouth), Hydrocodone/Acetaminophen (By mouth), Ketorolac (By mouth), Robot Assisted Laparoscopic Prostatectomy (DC) Activity/Diet/Wound Care/Special Instructions: You can resume Aspirin tomorrow No heavy lifting or straining increase fluid intake You may shower, no baths It's normal to see blood in the urine Start your antibiotics one day prior to your follow up appointment Discharge Disposition: HOME SELF-CARE
== END 2023-02-25 18:09 | disposition home or self-care (01) ==
LOC: OR 09:33 → 5NMEDONC 15:55 → OR 02-25 18:09
PROVIDERS: ATTEND Urology
DX: C61 Malignant neoplasm of prostate (principal); G89.18 Other acute postprocedural pain; I48.91 Unspecified atrial fibrillation; K21.9 Gastro-esophageal reflux disease without esophagitis; E78.5 Hyperlipidemia, unspecified; I10 Essential (primary) hypertension; M19.90 Unspecified osteoarthritis, unspecified site; I25.10 Atherosclerotic heart disease of native coronary artery without angina pectoris; Z86.73 Personal history of transient ischemic attack (TIA), and cerebral infarction without residual deficits; Z82.49 Family history of ischemic heart disease and other diseases of the circulatory system; Z79.82 Long term (current) use of aspirin; Z79.899 Other long term (current) drug therapy
CPT/HCPCS: 94760; 64999; 86900; 86901; 85610; 86850; 55866; C1762; J2250; J1100; J0690; J2405; J3010; J1170 ×2; J1885 ×2; J1644 ×2

== ENCOUNTER → 2024-09-12 | Outpatient (CLI) | payer MEDICARE, OTHER ==
[2024-09-12 15:36] LABS: Basophils % (A) 1.2 %; Eosinophils # (A) 0.39 X 10*3/uL (0.04-0.35); Eosinophils % (A) 4.9 %; HCT 41.9 % (39.6-50.0); HGB 13.3 g/dL (13.0-17.0); Lymphocytes # (A) 1.07 X 10*3/uL (0.90-5.00); Lymphocytes % (A) 13.3 %; MCH 29.8 pg (27.0-32.0); MCHC 31.7 g/dL (32.0-37.0); MCV 93.9 FL (80.0-97.0); Mean Platelet Volume 9.9 FL (9.5-12.2); Monocytes # (A) 0.48 X 10*3/uL (0.20-1.00); NRBC Per 100 WBC 0 X 10*3/uL (0.00-0.01); Neutrophils # (A) 5.95 X 10*3/uL (1.80-7.70); Neutrophils % (A) 74.2 %; Platelet Count 233 X 10*3/uL (140-440); RBC 4.46 X 10*6/uL (4.40-5.60); RDW 13.7 % (11.5-14.5); WBC 8.02 X 10*3/uL (4.50-10.00)
[2024-09-12 15:51] LABS: % Iron Saturation 15.96 (15.00-50.00); Blood Urea Nitrogen 16.6 mg/dL (9.0-27.0); Carbon Dioxide 22.8 mmol/L (21.6-31.8); Chloride 105 mmol/L (96-109); Iron 49 UG/DL (65-175); Potassium 4.9 mmol/L (3.5-5.5); Sodium 141 mmol/L (135-145); Total Iron Binding Capacity 307 UG/DL (228-460)
== END | disposition home or self-care (01) ==
LOC: LABPAT 10:53
PROVIDERS: ATTEND Internal Medicine Interventional Cardiology
DX: Z01.818 Encounter for other preprocedural examination (principal); I25.10 Atherosclerotic heart disease of native coronary artery without angina pectoris; I48.0 Paroxysmal atrial fibrillation; D64.9 Anemia, unspecified
CPT/HCPCS: 36415; 80051; 82565; 82728; 83540; 83550; 84520; 85025

== ENCOUNTER → 2024-09-25 | Day surgery (SDC) | payer MEDICARE, OTHER ==
[2024-09-21 10:29] VITALS: BMI 30.8
[~2024-09-25] MED LIST changes: +ALPRAZolam 0.25 MG TAB PO PRN; +ALPRAZolam 0.5 MG TAB PO PRN; +ASPIRIN 325 MG TAB PO ONE; +ATORVASTATIN 80 MG TAB PO ONE; -DEXAMETHASONE SOD PHOSPHATE 4 MG/ML 1 ML VIAL IV ONE; -HEPARIN SODIUM,PORCINE/PF 5,000 UNIT/0.5 ML SYRINGE SQ PRN; -LIDOCAINE 1% (10MG/ML) FOR IV START INTRADERMA PRN; +NITROGLYCERIN SL TABS 0.4 MG TAB SUBLINGUAL PRN; -ONDANSETRON 4 MG/2 ML VIAL IVP ONE; +SODIUM CHLORIDE 0.9% 1,000 ML IV SCH
[2024-09-25] MEDS: IV FLUID CONTINUATION 1,000 ML IV ONE ×2 (06:08→10:30)
[2024-09-25] MEDS: SODIUM CHLORIDE 0.9% 1,000 ML in EMPTY BAG 1 BAG IV SCH (06:08)
[2024-09-25 06:16] VITALS: TEMP 97.8
[2024-09-25 06:59] LABS: INR 1.3 (<1.2); Prothrombin Time 14.1 sec (10.0-12.5)
[2024-09-25] MEDS: HEPARIN SODIUM,PORCINE 10,000 UNIT in SODIUM CHLORIDE 0.9% 1,000 ML IRRIGATION PRN (07:23)
[2024-09-25] MEDS: HEPARIN SODIUM,PORCINE (1 ML) 2,500 UNIT in SODIUM CHLORIDE 0.9% 250 ML IRRIGATION PRN (07:23)
[2024-09-25] MEDS: MIDAZOLAM 2 MG/2 ML VIAL IVP ONE (08:03)
[2024-09-25] MEDS: LIDOCAINE 1% INJ 10MG/ML (20 ML MDV) SQ ONE (08:05)
[2024-09-25] MEDS: VERAPAMIL SYRINGE (5 MG/10 ML) INTRAARTER ONE (08:08)
[2024-09-25] MEDS: HEPARIN SODIUM 1,000 UN/ML (10ML VL) IV ONE (08:12)
[2024-09-25] MEDS: IOPAMIDOL-370 100ML BTL INJ ONE (08:31)
--- NOTE | 2024-09-25 10:51 | CC ---
CARDIAC CATHETERIZATION REPORT PROCEDURES PERFORMED: Left heart catheterization and coronary angiography. PERFORMED BY: Dr. Iliana Lee. Moderate conscious sedation time was 29 minutes. The patient was administered Versed. Oxygen saturation, hemodynamics, and EKG were monitored closely. CLINICAL INFORMATION: Mr. Nakul Hedrick is a 69-year-old gentleman with a history of CAD, prior PCI of RCA, paroxysmal atrial fibrillation, status post ablation, obstructive sleep apnea with a regular CPAP use, hypertension, and hyperlipidemia and degenerative joint disease, has been having exertional shortness of breath with a partial and reversible inferior wall defect. Therefore, he was advised cardiac cath. His blood pressure is under good control. He is on a combination of amlodipine, atorvastatin, Coumadin, and Lopressor. This procedure was performed on September 25, 2024 at [facility]. PROCEDURE NOTE: Under local anesthesia and strict aseptic precautions, a 6-Tajik introducer was placed in the right radial artery. I used a standard right Julius catheter, but this catheter was going into the conus branch. Therefore, I switched over to AR2 5-Tajik catheter. With this, I was able to get selective injection of the right coronary artery. I then performed coronary angiogram of the left system with a JL3.5 catheter. The same right Julius catheter was used to check LV pressures. LV-gram was not performed. The catheter and sheath were taken out and TR band applied as per protocol with saturation in the fingers of the right hand of about 96%. CARDIAC CATHETERIZATION FINDINGS: The left ventricular end-diastolic pressure was 14 mmHg without any gradient across the aortic valve. CORONARY ANGIOGRAPHY FINDINGS: Right coronary artery: This is a dominant vessel. The stented segment in the proximal area is widely patent with remarkably good flow, distally bifurcates into PDA and PLV, both of which have minor irregularities. No significant disease. This is a dominant RCA without significant disease. Minor irregularities of less than 30% noted in the mid to distal segments, and the branches both PDA and PLV are free of significant disease. Left main coronary artery: Short patent vessel. No significant disease. Bifurcates into LAD and circumflex. The ostium of the left main at an angle seems to have diseased, but in caudal views that does not have any significant disease. The catheter was positioned with the tip looking superiorly. Left main has no significant disease. LAD: This is a fair caliber vessel, extends along the anterior wall, gives off a large diagonal branch, runs towards the apex. Minor irregularities. No significant disease. Left posterior circumflex coronary artery: Nondominant vessel, gives off a good single obtuse marginal branch, the left atrial circumflex branch. Minor irregularities noted. No significant branch. FINAL IMPRESSION: This patient has a right-dominant system, widely patent RCA that was stented more than 11 years ago. Slightly elevated filling pressures. No gradient. Left system has minor irregularities. No significant disease. RECOMMENDATIONS: Findings were reviewed with the patient and . I am recommending continued medical therapy with risk factor modification. I will add losartan 50 mg at bedtime to optimize his BP control and continue his other medications including aspirin, atorvastatin, amlodipine, and Coumadin. Coumadin will be resumed this evening. He will be discharged later on today, and I will see him in the office this in the morning. MMODL / IJN: [id number] /
[2024-09-25 19:50] VITALS: BP 159/75; PULSE 66; RESP 16
== END ==
LOC: CATHCVL 05:50
PROVIDERS: ATTEND Internal Medicine Interventional Cardiology
DX: I25.10 Atherosclerotic heart disease of native coronary artery without angina pectoris (principal); I48.0 Paroxysmal atrial fibrillation; I10 Essential (primary) hypertension; E78.5 Hyperlipidemia, unspecified; F17.210 Nicotine dependence, cigarettes, uncomplicated; G47.33 Obstructive sleep apnea (adult) (pediatric); Z98.890 Other specified postprocedural states; Z95.5 Presence of coronary angioplasty implant and graft; Z79.82 Long term (current) use of aspirin; Z79.02 Long term (current) use of antithrombotics/antiplatelets; Z79.899 Other long term (current) drug therapy
CPT/HCPCS: 93458; 85610; 92928 ×2; C1769; C1894; J2250; J1644 ×3; J2003; Q9967

== ENCOUNTER → 2025-01-15 | Outpatient (CLI) | payer MEDICARE, OTHER ==
[2025-01-15 15:34] LABS: Appearance,Urine Clear (Clear); Bilirubin,Urine Negative (Negative); Blood,Urine Negative (Negative); Color,Urine Yellow (Yellow); Ketones,Urine Negative (Negative); Nitrite,Urine Negative (Negative); PH, Urine 5.5; Specific Gravity,Urine 1.022 (1.001-1.030); Urobilinogen,Urine 0.2 E.U./DL
[2025-01-15 15:47] LABS: Basophils # (A) 0.07 X 10*3/uL (0.00-0.10); Basophils % (A) 1.1 %; Eosinophils # (A) 0.33 X 10*3/uL (0.04-0.35); Eosinophils % (A) 5.1 %; HCT 40.3 % (39.6-50.0); HGB 12.9 g/dL (13.0-17.0); Lymphocytes # (A) 0.99 X 10*3/uL (0.90-5.00); Lymphocytes % (A) 15.4 %; MCH 31.2 pg (27.0-32.0); MCV 97.3 FL (80.0-97.0); Mean Platelet Volume 10.2 FL (9.5-12.2); Monocytes % (A) 7.8 %; NRBC Per 100 WBC 0 X 10*3/uL (0.00-0.01); Neutrophils % (A) 70.3 %; Platelet Count 194 X 10*3/uL (140-440); RBC 4.14 X 10*6/uL (4.40-5.60); RDW 13.4 % (11.5-14.5); WBC 6.41 X 10*3/uL (4.50-10.00)
[2025-01-15 16:25] LABS: ALT 23 U/L (10-49); AST 20 U/L (14-35); Albumin 4.2 g/dL (3.8-4.9); Albumin/Globulin Ratio 1.31 Ratio (1.60-3.17); Alkaline Phosphatase 76 U/L (41-126); BUN/Creat Ratio 22.56 Ratio (12.00-20.00); Blood Urea Nitrogen 20.3 mg/dL (9.0-27.0); Calcium 9.5 mg/dL (8.7-10.3); Carbon Dioxide 22.6 mmol/L (21.6-31.8); Chloride 105 mmol/L (96-109); Chol/HDL Ratio 2.48 Ratio; Globulin 3.2 g/dL (1.6-3.3); Glucose 109 mg/dL (70-110); LDL Cholesterol,Calculated 69.5 mg/dL (0.0-131.0); Potassium 4.6 mmol/L (3.5-5.5); Prostate Specific Antigen 0.07 ng/mL (0.000-4.500); Sodium 139 mmol/L (135-145); Total Bilirubin 0.3 mg/dL (0.3-1.2); Total Protein 7.4 g/dL (6.2-8.2); VLDL Calculation 11.74 mg/dL (5.00-40.00)
== END | disposition home or self-care (01) ==
LOC: LABWHC1 11:06
PROVIDERS: ATTEND Family Medicine
DX: N40.0 Benign prostatic hyperplasia without lower urinary tract symptoms (principal); E78.5 Hyperlipidemia, unspecified; E66.9 Obesity, unspecified
CPT/HCPCS: 36415; 80053; 80061; 81003; 82306; 83036; 84153; 84443; 85025

== ENCOUNTER 2025-03-20 07:59 | Day surgery (SDC) | payer MEDICARE, OTHER ==
[2025-03-19 09:57] VITALS: BMI 32.1
[~2025-03-20 07:59] MED LIST changes: -ALPRAZolam 0.25 MG TAB PO PRN; -ALPRAZolam 0.5 MG TAB PO PRN; -ASPIRIN 325 MG TAB PO ONE; -ATORVASTATIN 80 MG TAB PO ONE; +LIDOCAINE 1% (10MG/ML) FOR IV START INTRADERMA PRN; -NITROGLYCERIN SL TABS 0.4 MG TAB SUBLINGUAL PRN; +ONDANSETRON 4 MG/2 ML VIAL IVP PRN; -SODIUM CHLORIDE 0.9% 1,000 ML IV SCH
[2025-03-20] MEDS: IV FLUID CONTINUATION 1,000 ML IV ONE (08:10)
[2025-03-20 08:15] VITALS: TEMP 97.7
[2025-03-20] MEDS: LACTATED RINGERS 1,000 ML IV SCH (08:26)
[2025-03-20] MEDS ORDERED: PROPOFOL 10 MG/ML 20 ML VIAL IV ONE (09:01)
--- NOTE | 2025-03-20 09:22 | P.PCN ---
Date of Procedure: 03/20/25 Procedure(s) Performed: BRIEF HISTORY: Patient is a 69-year-old pleasant white male scheduled for an elective colonoscopy as a part of screening for colon cancer. Patient has history of DVT/PE and has been on Coumadin which is on hold only for 48 hours. Had a lengthy discussion with the patient regarding canceling the procedure and rescheduling as it is recommended to stop the Coumadin 5 days before the procedure but patient wanted to proceed with colonoscopy today understanding the risks involved with the procedure especially if any polyps were found that will not be removed. PROCEDURE PERFORMED: Colonoscopy. PREOPERATIVE DIAGNOSIS: Screening for colon cancer. IV sedation per Anesthesia. PROCEDURE: After informed consent was obtained, the patient, was brought into the endoscopy unit. IV sedation was administered by Anesthesia under continuous monitoring. Digital rectal examination was normal. Initially the Olympus CF-160 flexible video colonoscope was then inserted in the rectum, gradually advanced into the cecum without any difficulty. Careful examination was performed as the scope was gradually being withdrawn. Ileocecal valve and the appendiceal orifice were visualized and appeared normal. Prep was excellent. Mucosa of the cecum, there was not removed because of the Coumadin. In the ascending colon, transverse colon, appeared normal. In the descending colon there was a 1 cm polyp that was not removed. Scattered sigmoid diverticulosis seen. Rest of the descending colon, sigmoid colon, and rectum appeared normal. Retroflexion was performed in the rectum and no lesions were seen. The patient tolerated the procedure well. IMPRESSION: 5 mm cecal polyp not removed 1 cm descending colon polyp not removed Scattered sigmoid diverticulosis RECOMMENDATIONS: Findings of this examination were discussed with the patient as well as his family.. He was advised to have repeat screening colonoscopy with polypectomy in a year and was advised to stop the Coumadin for 5 days prior to the procedure. He is agreeable with this plan
[2025-03-20 09:31] VITALS: RESP 14
[2025-03-20 09:43] VITALS: BP 143/83; PULSE 63
== END 2025-03-20 10:34 ==
LOC: ORWHC2ENDO 07:59
PROVIDERS: ATTEND Internal Medicine Gastroenterology
DX: Z12.11 Encounter for screening for malignant neoplasm of colon (principal); K57.30 Diverticulosis of large intestine without perforation or abscess without bleeding; K63.5 Polyp of colon; I10 Essential (primary) hypertension; E78.5 Hyperlipidemia, unspecified; I25.2 Old myocardial infarction; I25.10 Atherosclerotic heart disease of native coronary artery without angina pectoris; G47.33 Obstructive sleep apnea (adult) (pediatric); F41.9 Anxiety disorder, unspecified; M19.90 Unspecified osteoarthritis, unspecified site; K21.9 Gastro-esophageal reflux disease without esophagitis; K76.9 Liver disease, unspecified; Z79.899 Other long term (current) drug therapy; Z79.01 Long term (current) use of anticoagulants; Z87.891 Personal history of nicotine dependence; Z99.89 Dependence on other enabling machines and devices; Z95.5 Presence of coronary angioplasty implant and graft; Z86.718 Personal history of other venous thrombosis and embolism; Z88.8 Allergy status to other drugs, medicaments and biological substances
CPT/HCPCS: J2704; G0121